=== PATIENT | female | born 1980 | race Caucasian/White ===

== ENCOUNTER 2016-05-17 18:33 | Emergency (ER) | payer MEDICAID, MEDICARE, OTHER ==
[2016-05-17] MEDS ORDERED: Ondansetron 4 MG/2 ML SDV IVPUSH ONE (19:20)
[2016-05-17] MEDS ORDERED: Sodium Chloride 0.9% 10 ML Syringe FLUSH PRN (19:20)
[2016-05-17] MEDS ORDERED: Sodium Chloride 0.9% 1,000 ML IV SCH ×2 (19:30→20:55)
--- NOTE | 2016-05-17 21:15 | EDM.PDOC ---
ED HPI NEURO - General Chief Complaint: Neuro Symptoms/Deficits Stated Complaint: LEFT SIDE WEAKNESS,HEADACHE Time Seen by Provider: 05/17/16 19:20 Source: Reports: Patient History Limitations: Reports: No limitations - History of Present Illness INITIAL COMMENTS - FREE TEXT/NARRATIVE: He a TIA. She awoke this morning with a headache. Her head hurts all over. She complains of left sided weakness and numbness. Earlier in the day she had drooping to the left side of her face but thinks that has cleared up. She still feels dizzy especially when she tries to sit up. She describes it as a spinning sensation and also her vision tends to go black as if she's going to pass out. She's had 2 similar episodes in the past which she describes as TIAs. The last one was in November 2015 and she was seen in [facility]. She had MRI of the C-spine and brain in both were normal. We've obtained copies of those from this hospital I believe it was [facility]'s. She is occasionally had headaches in the past but none that are this severe and lasts this long. She hasn't taken any medication for pain area she is a little bit nauseated but has been able to eat today. She's also dizzy when she is supine and feels the spinning sensation. She does sometimes see some spots before the blackness comes on but nothing that sounds like a scintillating scotoma. She does say that since her last TIA she's had blurriness in the left eye but not enough to have her eyes checked. She is disabled and on Medicare due to to fibromyalgia and the TIAs. She did tell me that the MRI showed a small area of abnormality but the report refutes this. She's never seen a neurologist. She says that left-sided weakness and numbness gives her some trouble walking and gripping. She's had an echocardiogram in the past and had some type of a septal defect. She also had an ultrasound of her legs which showed no evidence of a DVT. She denies any history of having a carotid ultrasound done. She's had 10-15 head CTs in the past at about 4 or 5 MRI. 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 - Related Data Allergies/ADRs: Allergies Allergy/AdvReac Type Severity Reaction Status Date / Time acetaminophen [From Percocet] Allergy Vomiting Verified 05/17/16 18:51 ciprofloxacin [From Cipro] Allergy Anaphylactic Verified 05/17/16 18:51 Shock clindamycin Allergy Anaphylactic Verified 05/17/16 18:51 Shock fish derived Allergy Anaphylactic Verified 05/17/16 18:51 Shock hydrocodone [From Vicodin] Allergy Vomiting Verified 05/17/16 18:51 ibuprofen Allergy Anaphylactic Verified 05/17/16 18:51 Shock NSAIDS (Non-Steroidal Allergy Nausea Verified 05/17/16 18:51 Anti-Inflamma oxycodone [From Percocet] Allergy Vomiting Verified 05/17/16 18:51 Penicillins Allergy Anaphylactic Verified 05/17/16 18:51 Shock tramadol Allergy Vomiting Verified 05/17/16 18:51 Home Meds: Home Meds Amitriptyline [Elavil] 25 mg PO BEDTIME 05/17/16 [History] DULoxetine HCl [Cymbalta] 90 mg PO DAILY 05/17/16 [History] Past Medical History Cardiovascular History: Reports: Other (see below) Other Cardiovascular History: States hole in her heart 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: Musculoskeletal History: Reports: Fracture Neurological History: Reports: TIA, Other (see below) Other Neuro History: November and December 2015 Psychiatric History: Reports: Depression - Infectious Disease History Infectious Disease History: Reports: Chicken pox - Past Surgical History HEENT Surgical History: Reports: Tonsillectomy GI Surgical History: Reports: Appendectomy, Bariatric procedure, Cholecystectomy Female Surgical History: Reports: Hysterectomy, Salpingo-oophorectomy Social & Family History - Tobacco Use Smoking Status *Q: Former Smoker Years of Tobacco use: 18 Packs/Tins Daily: 0.5 Second Hand Smoke Exposure: No - Caffeine Use Caffeine Use: Reports: Coffee, Soda - Recreational Drug Use Recreational Drug Use: No ED ROS GENERAL - Review of Systems Review Of Systems: See Below Constitutional: Reports: weakness HEENT: Reports: Other (See HPI) Respiratory: Reports: No Symptoms Cardiovascular: Reports: No symptoms Endocrine: Reports: no symptoms GI/Abdominal: Reports: No symptoms : Reports: no symptoms Musculoskeletal: Reports: no symptoms Skin: Reports: no symptoms Neurological: Reports: Dizziness, Headache, Numbness, Weakness Psychiatric: Reports: No symptoms Hematologic/Lymphatic: Reports: no symptoms Immunologic: Reports: no symptoms ED EXAM, NEURO - Physical Exam Exam: See Below Exam Limited By: No limitations General Appearance: alert, WD/WN, no apparent distress Eye Exam: bilateral eye: EOMI, normal fundi (Fundi were not well seen), PERRL Ears: normal external exam, normal TMs Nose: normal inspection Throat/Mouth: Normal inspection, Normal oropharynx Head Exam: atraumatic Neck: normal inspection. 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 Legs were generally equal in strength but this was tested with her supine. The patient would get dizzy and feel like having near-syncope whenever she would sit up or tried to stand. Romberg testing appeared positive. When she shut her eyes she would begin to slowly swayed backward but she would catch herself.). No: no motor/sensory deficits DTR: 2+: bicep (R), bicep (L), patella (R), patella (L), achilles (R), achilles (L) Back Exam: normal inspection Extremities: normal inspection Psychiatric: normal affect Skin Exam: Warm, Dry Course - Vital Signs Last Recorded V/S: Last Vital Signs Temp 35.8 C 05/17/16 18:52 Pulse 64 05/17/16 20:28 Resp 20 05/17/16 20:28 BP 106/69 05/17/16 20:28 Pulse Ox 99 05/17/16 20:28 - Orders/Labs/Meds Orders: Active Orders 24 hr Category Date Time Status EKG Documentation Completion [RC] ASDIRECTED Care 05/17/16 19:21 Active Acetaminophen/HYDROcodone [Kinder 325-5 MG] Med 05/17/16 21:28 Once 2 tab PO ONETIME ONE Sodium Chloride 0.9% [Normal Saline] 1,000 ml Med 05/17/16 19:30 Active IV ASDIRECTED Sodium Chloride 0.9% [Saline Flush] Med 05/17/16 19:20 Active 10 ml FLUSH ASDIRECTED PRN Saline Lock Insert [OM.PC] Urgent Oth 05/17/16 19:20 Ordered EKG 12 Lead [EK] Urgent Ther 05/17/16 19:20 Ordered Medication Orders Sodium Chloride (Normal Saline) 1,000 mls @ 999 mls/hr IV ASDIRECTED MAYRA Last Admin: 05/17/16 19:35 Dose: 999 mls/hr Sodium Chloride (Saline Flush) 10 ml FLUSH ASDIRECTED PRN PRN Reason: Keep Vein Open Last Admin: 05/17/16 19:38 Dose: 10 ml Labs: Laboratory Tests 05/17/16 05/17/16 05/17/16 Range/Units 19:31 19:31 20:32 WBC 6.2 (4.5-11.0) K/uL RBC 4.47 (3.30-5.50) M/uL Hgb 13.6 (12.0-15.0) g/dL Hct 40.6 (36.0-48.0) % MCV 91 (80-98) fL MCH 30 (27-31) pg MCHC 34 (32-36) % Plt Count 272 (150-400) K/uL Neut % (Auto) 58 (36-66) % Lymph % (Auto) 34 (24-44) % [place] % (Auto) 6 (2-6) % Eos % (Auto) 2 (2-4) % Baso % (Auto) 0 (0-1) % Sodium 142 (140-148) mmol/L Potassium 4.2 (3.6-5.2) mmol/L Chloride 108 (100-108) mmol/L Carbon Dioxide 27 (21-32) mmol/L Anion Gap 6.7 (5.0-14.0) mmol/L BUN 17 (7-18) mg/dL Creatinine 0.9 (0.6-1.0) mg/dL Est Cr Clr Drug Dosing 98.05 mL/min Estimated GFR (MDRD) > 60 (>60) Glucose 107 H (74-106) mg/dL Calcium 8.3 L (8.5-10.1) mg/dL Total Bilirubin 0.4 (0.2-1.0) mg/dL AST 22 (15-37) U/L ALT 32 (12-78) U/L Alkaline Phosphatase 110 (46-116) U/L Total Protein 6.5 (6.4-8.2) g/dL Albumin 3.5 (3.4-5.0) g/dL Globulin 3.0 (2.3-3.5) g/dL Albumin/Globulin Ratio 1.2 (1.2-2.2) Urine Color Urine Appearance Urine pH (4.5-8.0) Ur Specific [place] (1.008-1.030) Urine Protein (NEGATIVE) mg/dL Urine Glucose (UA) (NEGATIVE) mg/dL Urine Ketones (NEGATIVE) mg/dL Urine Occult Blood (NEGATIVE) Urine Nitrite (NEGATIVE) Urine Bilirubin (NEGATIVE) Urine Urobilinogen (NORMAL) mg/dL Ur Leukocyte Esterase (NEGATIVE) Urine RBC (0-5) Urine WBC (0-5) Ur Epithelial Cells Amorphous Sediment Urine Bacteria Urine Mucus Urine HCG, Qual Negative 05/17/16 Range/Units 20:32 WBC (4.5-11.0) K/uL RBC (3.30-5.50) M/uL Hgb (12.0-15.0) g/dL Hct (36.0-48.0) % MCV (80-98) fL MCH (27-31) pg MCHC (32-36) % Plt Count (150-400) K/uL Neut % (Auto) (36-66) % Lymph % (Auto) (24-44) % [place] % (Auto) (2-6) % Eos % (Auto) (2-4) % Baso % (Auto) (0-1) % Sodium (140-148) mmol/L Potassium (3.6-5.2) mmol/L Chloride (100-108) mmol/L Carbon Dioxide (21-32) mmol/L Anion Gap (5.0-14.0) mmol/L BUN (7-18) mg/dL Creatinine (0.6-1.0) mg/dL Est Cr Clr Drug Dosing mL/min Estimated GFR (MDRD) (>60) Glucose (74-106) mg/dL Calcium (8.5-10.1) mg/dL Total Bilirubin (0.2-1.0) mg/dL AST (15-37) U/L ALT (12-78) U/L Alkaline Phosphatase (46-116) U/L Total Protein (6.4-8.2) g/dL Albumin (3.4-5.0) g/dL Globulin (2.3-3.5) g/dL Albumin/Globulin Ratio (1.2-2.2) Urine Color Yellow Urine Appearance Cloudy Urine pH 8.0 (4.5-8.0) Ur Specific [place] 1.015 (1.008-1.030) Urine Protein Negative (NEGATIVE) mg/dL Urine Glucose (UA) Normal (NEGATIVE) mg/dL Urine Ketones Negative (NEGATIVE) mg/dL Urine Occult Blood Negative (NEGATIVE) Urine Nitrite Negative (NEGATIVE) Urine Bilirubin Negative (NEGATIVE) Urine Urobilinogen 1 (NORMAL) mg/dL Ur Leukocyte Esterase Large (NEGATIVE) Urine RBC 0-5 (0-5) Urine WBC 20-30 H (0-5) Ur Epithelial Cells Few Amorphous Sediment Moderate Urine Bacteria Few Urine Mucus Few Urine HCG, Qual Meds: Medications Generic Name Dose Route Start Last Admin Trade Name Freq PRN Reason Stop Dose Admin Sodium Chloride 1,000 mls @ 999 mls/hr 05/17/16 19:30 05/17/16 19:35 Normal Saline IV 999 mls/hr ASDIRECTED MAYRA Administration Sodium Chloride 10 ml 05/17/16 19:20 05/17/16 19:38 Saline Flush FLUSH 10 ml ASDIRECTED PRN Administration Keep Vein Open Discontinued Medications Generic Name Dose Route Start Last Admin Trade Name Freq PRN Reason Stop Dose Admin Ondansetron HCl 4 mg 05/17/16 19:20 05/17/16 19:39 Zofran IVPUSH 05/17/16 19:21 4 mg ONETIME ONE Administration - Re-Assessments/Exams Free Text/Narrative Re-Assessment/Exam: 05/17/16 21:39 the patient's blood pressure dropped to about asystolic of 101 with her spinning. She had just gotten up to go to the bathroom and was feeling dizzy at that time. Her pulse rate at that time had slowed slightly to about 69. There was never any obvious orthostasis noted. Although at one time her radial pulse seemed barely palpable with her sitting up. She received approximately a liter and a half of IV normal saline and that did not seem to change her symptoms. This case was discussed with the neurologist at [facility] in [facility]. He felt that this could be a migrainous phenomenon or still possibly a TIA or small stroke. He felt like she deserves a full workup. We' re not able to do that in a timely manner at this hospital and we are not able to admit her either so she'll be transferred to [place] to his care. Patient agrees to the transfer. Departure - Departure Time of Disposition: 21:43 Disposition: DC/Tfer to Acute Hospital 02 Condition: serious Clinical Impression: Cerebrovascular insufficiency Forms: ED Department Discharge - My Orders Last 24 Hours: My Active Orders 05/17/16 19:20 Sodium Chloride 0.9% [Saline Flush] 10 ml FLUSH ASDIRECTED PRN Saline Lock Insert [OM.PC] Urgent EKG 12 Lead [EK] Urgent 05/17/16 19:21 EKG Documentation Completion [RC] ASDIRECTED 05/17/16 19:30 Sodium Chloride 0.9% [Normal Saline] 1,000 ml IV ASDIRECTED 05/17/16 21:28 Acetaminophen/HYDROcodone [Kinder 325-5 MG] 2 tab PO ONETIME ONE - Assessment/Plan Last 24 Hours: My Active Orders 05/17/16 19:20 Sodium Chloride 0.9% [Saline Flush] 10 ml FLUSH ASDIRECTED PRN Saline Lock Insert [OM.PC] Urgent EKG 12 Lead [EK] Urgent 05/17/16 19:21 EKG Documentation Completion [RC] ASDIRECTED 05/17/16 19:30 Sodium Chloride 0.9% [Normal Saline] 1,000 ml IV ASDIRECTED 05/17/16 21:28 Acetaminophen/HYDROcodone [Kinder 325-5 MG] 2 tab PO ONETIME ONE
[2016-05-17] MEDS ORDERED: Acetaminophen/HYDROcodone 325-5 MG Tab PO ONE (21:28)
[2016-05-17 21:50] VITALS: BP 119/65
== END 2016-05-17 22:10 ==
LOC: JP.ED 18:33
DX: I67.81 Acute cerebrovascular insufficiency (principal); Z88.6 Allergy status to analgesic agent; Z88.8 Allergy status to other drugs, medicaments and biological substances; Z88.0 Allergy status to penicillin; Z88.5 Allergy status to narcotic agent; Z79.899 Other long term (current) drug therapy; Z86.73 Personal history of transient ischemic attack (TIA), and cerebral infarction without residual deficits; Z90.710 Acquired absence of both cervix and uterus; Z90.89 Acquired absence of other organs; Z98.890 Other specified postprocedural states; Z87.891 Personal history of nicotine dependence
CPT/HCPCS: 36415; 80053; 81001; 81025; 85025; 93005; 96361; 96374; 99285; A9270; J2405; J7040; J7050; 93010

== ENCOUNTER 2016-06-04 13:21 | Emergency (ER) | payer MEDICAID, MEDICARE, OTHER ==
[2016-06-04 13:42] VITALS: BP 111/68
--- NOTE | 2016-06-04 14:48 | EDM.PDOC ---
[id number] Complaint: LT SIDE WEAKNESS/CONFUSED Time Seen by Provider: 06/04/16 13:45 Source of Information: Reports: Patient History Limitations: Reports: No limitations - History of Present Illness INITIAL COMMENTS - FREE TEXT/NARRATIVE: 35-year-old female who was at physical therapy this morning because of persistent left-sided weakness after a "TIA" became more symptomatic so she was sent to the emergency room to evaluate for a stroke. On arrival she was dysarthric, displaying some weakness of the left upper extremity and left lower extremity but had no headache. Denies any visual field deficits or double vision. She was stable. Onset: sudden (Sudden worsening of her chronic symptoms) Associated Symptoms: Reports: malaise, weakness. Denies: fever/chills, headaches Headache Pain Score (Numeric/FACES): 10 - Related Data Allergies Allergy/AdvReac Type Severity Reaction Status Date / Time adhesive tape Allergy Blisters Verified 06/04/16 13:31 ciprofloxacin [From Cipro] Allergy Anaphylactic Verified 06/04/16 13:31 Shock clindamycin Allergy Anaphylactic Verified 06/04/16 13:31 Shock fish derived Allergy Anaphylactic Verified 06/04/16 13:31 Shock ibuprofen Allergy Anaphylactic Verified 06/04/16 13:31 Shock Penicillins Allergy Anaphylactic Verified 06/04/16 13:31 Shock hydrocodone [From Vicodin] AdvReac Vomiting Verified 06/04/16 13:31 NSAIDS (Non-Steroidal AdvReac Nausea Verified 06/04/16 13:31 Anti-Inflamma oxycodone [From Percocet] AdvReac Vomiting Verified 06/04/16 13:31 tramadol AdvReac Vomiting Verified 06/04/16 13:31 Home Meds: Home Meds Amitriptyline [Elavil] 25 mg PO BEDTIME 05/17/16 [History] DULoxetine HCl [Cymbalta] 90 mg PO DAILY 05/17/16 [History] Aspirin [Halfprin] 81 mg PO DAILY 06/04/16 [History] atorvaSTATin [Lipitor] 10 mg PO DAILY 06/04/16 [History] Past Medical History Cardiovascular History: Reports: Other (see below) Other Cardiovascular History: States hole in her heart 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: Musculoskeletal History: Reports: Fracture Neurological History: Reports: TIA, Other (see below) Other Neuro History: November and December TIA Psychiatric History: Reports: Depression - Infectious Disease History Infectious Disease History: Reports: Chicken pox - Past Surgical History HEENT Surgical History: Reports: Tonsillectomy GI Surgical History: Reports: Appendectomy, Bariatric procedure, Cholecystectomy Female Surgical History: Reports: Hysterectomy, Salpingo-oophorectomy Social & Family History - Tobacco Use Smoking Status *Q: Former Smoker Years of Tobacco use: 18 Packs/Tins Daily: 0.5 Used Tobacco, but Quit: Yes Month Tobacco Last Used: May 2016 Second Hand Smoke Exposure: No - Caffeine Use Caffeine Use: Reports: Coffee - Recreational Drug Use Recreational Drug Use: No ED ROS GENERAL - Review of Systems Review Of Systems: See Below Constitutional: Denies: fever, chills HEENT: Reports: No symptoms Respiratory: Denies: Shortness of Breath Cardiovascular: Denies: Chest pain, Palpitations GI/Abdominal: Denies: Nausea, Vomiting Neurological: Reports: Dizziness, Paresthesia, Weakness, Gait Disturbance Psychiatric: Reports: Anxiety, Depression, Other (Bipolar disorder and schizophrenia) ED EXAM, GENERAL - Physical Exam Exam: See Below Exam Limited By: No limitations General Appearance: alert, no apparent distress Eye Exam: bilateral eye: EOMI Throat/Mouth: Other (Some dysarthria when speaking but the weakness in her face is inconsistent) Respiratory/Chest: no respiratory distress, lungs clear Cardiovascular: regular rate, rhythm Extremities: other (Weakness of the left grasp and plantar and dorsi flexion of the left foot) Psychiatric: depressed mood, flat affect Skin Exam: Warm, Dry Course - Vital Signs Last Recorded V/S: Last Vital Signs Temp 97.0 F 06/04/16 13:34 Pulse 68 06/04/16 13:34 Resp 12 06/04/16 13:34 BP 111/68 06/04/16 13:34 Pulse Ox 95 06/04/16 13:34 - Orders/Labs/Meds Labs: Laboratory Tests 06/04/16 06/04/16 Range/Units 13:59 13:59 WBC 5.8 (4.5-11.0) K/uL RBC 4.10 (3.30-5.50) M/uL Hgb 12.6 (12.0-15.0) g/dL Hct 38.3 (36.0-48.0) % MCV 93 (80-98) fL MCH 31 (27-31) pg MCHC 33 (32-36) % Plt Count 248 (150-400) K/uL Neut % (Auto) 52 (36-66) % Lymph % (Auto) 38 (24-44) % [place] % (Auto) 7 H (2-6) % Eos % (Auto) 2 (2-4) % Baso % (Auto) 1 (0-1) % Sodium 145 (140-148) mmol/L Potassium 4.1 (3.6-5.2) mmol/L Chloride 108 (100-108) mmol/L Carbon Dioxide 28 (21-32) mmol/L Anion Gap 9.0 (5.0-14.0) mmol/L BUN 16 (7-18) mg/dL Creatinine 0.7 (0.6-1.0) mg/dL Est Cr Clr Drug Dosing 126.98 mL/min Estimated GFR (MDRD) > 60 (>60) Glucose 86 (74-106) mg/dL Calcium 8.1 L (8.5-10.1) mg/dL Magnesium 1.8 (1.8-2.4) mg/dL - Re-Assessments/Exams Free Text/Narrative Re-Assessment/Exam: 06/04/16 15:51 I reviewed this patient's records extensively including a recent hospitalization for TIA. She admitted that last year she was evaluated for 2 episodes of similar symptoms while in [place]. Her CT and MRI have all been normal. The symptoms are more consistent with conversion disorder than they are true neurologic disease. I dave a CBC and BMP before I realized she had a complete physical 2 days ago and had the same labs drawn. They again were normal. I told the patient of the normal labs, of my suspicion that her symptoms are caused by stress and are not dangerous or disabling and she was able to discharged. She quickly improved, called her significant other to come and get her and take her home and she walked out of the emergency room without any apparent deficits. Departure - Departure Time of Disposition: 16:04 Disposition: Home, Self-Care 01 Condition: good Clinical Impression: Weakness of left side of body, Conversion disorder Referrals: PCP,None [Primary Care Provider] - Forms: ED Department Discharge Care Plan Goals: Continue with your current medications and recheck as scheduled.
== END 2016-06-04 16:04 | disposition home or self-care (01) ==
LOC: JP.ED 13:21
DX: F44.4 Conversion disorder with motor symptom or deficit (principal); F32.9 Major depressive disorder, single episode, unspecified; Z88.1 Allergy status to other antibiotic agents; Z88.0 Allergy status to penicillin; Z88.6 Allergy status to analgesic agent; Z91.09 Other allergy status, other than to drugs and biological substances; Z88.5 Allergy status to narcotic agent; Z79.82 Long term (current) use of aspirin; Z79.899 Other long term (current) drug therapy; Z86.73 Personal history of transient ischemic attack (TIA), and cerebral infarction without residual deficits; Z98.890 Other specified postprocedural states; Z90.49 Acquired absence of other specified parts of digestive tract; Z98.84 Bariatric surgery status; Z90.710 Acquired absence of both cervix and uterus; Z87.891 Personal history of nicotine dependence
CPT/HCPCS: 36415; 80048; 83735; 85025; 99283; 99285

== ENCOUNTER 2016-06-28 13:30 | Emergency (ER) | payer MEDICAID, MEDICARE, OTHER ==
[2016-06-28] MEDS ORDERED: Sodium Chloride 0.9% 10 ML Syringe FLUSH PRN (13:37)
[2016-06-28] MEDS ORDERED: Sodium Chloride 0.9% 1,000 ML IV SCH ×2 (13:45→16:15)
[2016-06-28] MEDS ORDERED: HYDROmorphone 1 MG/ML Syringe IVPUSH ONE (16:03)
[2016-06-28] MEDS ORDERED: Prochlorperazine 10 MG/2 ML SDV IVPUSH ONE (16:04)
[2016-06-28] MEDS ORDERED: diphenhydrAMINE 50 MG/ML SDV IVPUSH ONE (16:04)
--- NOTE | 2016-06-28 17:38 | EDM.PDOC ---
ED HPI GENERAL MEDICAL PROBLEM - General Chief Complaint: Neurological Problem Stated Complaint: [facility] Time Seen by Provider: 06/28/16 13:36 Source of Information: Reports: Patient History Limitations: Reports: No Limitations, Physical Impairment - History of Present Illness INITIAL COMMENTS - FREE TEXT/NARRATIVE: This patient was brought in by EMS complaining of a TIA. She's had these kind of symptoms before where one side of her body becomes weak. This has happened a number of times and she's had multiple workups including multiple head CTs and multiple brain MRIs area she's scheduled to see a neurologist next week. 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 She felt numbness and weakness in her left arm and leg. She did not fall. EMS was called. She denied any kind of visual changes. There is no slurring of speech she does complain that her left arm is just weak and she is unable to hold things. After hydrating her with a liter of saline in doing lab work the patient notes that she has a really bad headache and this is what started the episode. She occasionally gets headaches but says this one seems to be worse than the others. The headache started just about the time the weakness started. She does think that she's had headaches when she's had other episodes of weakness also. She has never been told that she had migraines. She's never had any visual changes associated with headaches Head Pain Score (Numeric/FACES): 10 - Related Data Allergies Allergy/AdvReac Type Severity Reaction Status Date / Time adhesive tape Allergy Blisters Verified 06/28/16 14:11 ciprofloxacin [From Cipro] Allergy Anaphylactic Verified 06/28/16 14:11 Shock clindamycin Allergy Anaphylactic Verified 06/28/16 14:11 Shock fish derived Allergy Anaphylactic Verified 06/28/16 14:11 Shock ibuprofen Allergy Anaphylactic Verified 06/28/16 14:11 Shock Penicillins Allergy Anaphylactic Verified 06/28/16 14:11 Shock hydrocodone [From Vicodin] AdvReac Vomiting Verified 06/28/16 14:11 NSAIDS (Non-Steroidal AdvReac Nausea Verified 06/28/16 14:11 Anti-Inflamma oxycodone [From Percocet] AdvReac Vomiting Verified 06/28/16 14:11 tramadol AdvReac Vomiting Verified 06/28/16 14:11 Home Meds: Home Meds Amitriptyline [Elavil] 25 mg PO BEDTIME 05/17/16 [History] DULoxetine HCl [Cymbalta] 90 mg PO BEDTIME 05/17/16 [History] Aspirin [Halfprin] 81 mg PO ASDIRECTED 06/04/16 [History] atorvaSTATin [Lipitor] 10 mg PO DAILY 06/04/16 [History] Cyclobenzaprine [Flexeril] 1 tab PO ASDIRECTED 06/28/16 [History] Gabapentin [Neurontin] 1 tab PO TID 06/28/16 [History] Past Medical History Cardiovascular History: Reports: Other (See Below) Other Cardiovascular History: States hole in her heart 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: Musculoskeletal History: Reports: Fracture Neurological History: Reports: TIA Other Neuro History: November and December TIA Psychiatric History: Reports: Depression - Infectious Disease History Infectious Disease History: Reports: Chicken Pox - Past Surgical History HEENT Surgical History: Reports: Tonsillectomy GI Surgical History: Reports: Appendectomy, Bariatric Procedure, Cholecystectomy Female Surgical History: Reports: Hysterectomy, Salpingo-Oophorectomy Social & Family History - Tobacco Use Smoking Status *Q: Never Smoker Years of Tobacco use: 18 Packs/Tins Daily: 0.5 Used Tobacco, but Quit: Yes Month Tobacco Last Used: May 2016 Second Hand Smoke Exposure: No - Caffeine Use Caffeine Use: Reports: Coffee - Recreational Drug Use Recreational Drug Use: No ED ROS GENERAL - Review of Systems Review Of Systems: See Below Constitutional: Reports: Weakness HEENT: Reports: No Symptoms Respiratory: Reports: No Symptoms Cardiovascular: Reports: No Symptoms Endocrine: Reports: Polyuria GI/Abdominal: Reports: No Symptoms : Reports: No Symptoms Musculoskeletal: Reports: No Symptoms Skin: Reports: No Symptoms Neurological: Reports: Headache, Paresthesia, Weakness Psychiatric: Reports: No Symptoms Hematologic/Lymphatic: Reports: No Symptoms ED EXAM, NEURO - Physical Exam Exam: See Below Exam Limited By: No Limitations General Appearance: Alert, WD/WN (She seems alert but a little bit slow to respond) Eye Exam: Bilateral Eye: EOMI, PERRL Ears: Normal External Exam Nose: Normal Inspection Throat/Mouth: Normal Inspection, Normal Oropharynx Head Exam: Atraumatic Neck: Normal Inspection Respiratory/Chest: Lungs Clear Cardiovascular: Regular Rate, Rhythm, No Murmur (Infection that might want a) GI/Abdominal: Soft, Non-Tender Neurological: Alert, Normal Mood/Affect, Normal Dorsiflexion, CN II-XII Intact, Normal Plantar Flexion, Normal Reflexes, Other (Initially she seemed like she couldn't move her left side at all however with coaching she definitely is able to move the left arm and over the course of treatment she completely regains his strength in her left hand.). No: No Motor/Sensory Deficits DTR: 2+: Bicep (R), Bicep (L), Patella (R), Patella (L), Achilles (R), Achilles (L) Extremities: Normal Inspection Psychiatric: Normal Affect, Normal Mood Skin Exam: Warm, Dry, Intact Course - Vital Signs Last Recorded V/S: Last Vital Signs Temp 36.3 C 06/28/16 14:00 Pulse 67 06/28/16 17:51 Resp 14 06/28/16 17:51 BP 115/56 L 06/28/16 17:51 Pulse Ox 98 06/28/16 17:51 - Orders/Labs/Meds Orders: Active Orders 24 hr Category Date Time Status EKG Documentation Completion [RC] ASDIRECTED Care 06/28/16 13:37 Active Chest 1V Frontal [CR] Urgent Exams 06/28/16 13:37 Taken DRUG SCREEN, URINE [URCHEM] Urgent Lab 06/28/16 13:37 Uncollected HCG QUALITATIVE,URINE [URCHEM] Urgent Lab 06/28/16 13:37 Uncollected UA W/MICROSCOPIC [URIN] Urgent Lab 06/28/16 13:37 Uncollected Sodium Chloride 0.9% [Normal Saline] 1,000 ml Med 06/28/16 13:45 Active IV ASDIRECTED Sodium Chloride 0.9% [Normal Saline] 1,000 ml Med 06/28/16 16:15 Active IV ASDIRECTED Sodium Chloride 0.9% [Saline Flush] Med 06/28/16 13:37 Active 10 ml FLUSH ASDIRECTED PRN Saline Lock Insert [OM.PC] Urgent Oth 06/28/16 13:37 Ordered EKG 12 Lead [EK] Urgent Ther 06/28/16 13:37 Ordered Medication Orders Sodium Chloride (Normal Saline) 1,000 mls @ 999 mls/hr IV ASDIRECTED MAYRA Last Admin: 06/28/16 14:51 Dose: 999 mls/hr Sodium Chloride (Normal Saline) 1,000 mls @ 999 mls/hr IV ASDIRECTED MAYRA Last Admin: 06/28/16 16:20 Dose: 999 mls/hr Sodium Chloride (Saline Flush) 10 ml FLUSH ASDIRECTED PRN PRN Reason: Keep Vein Open Last Admin: 06/28/16 14:52 Dose: 10 ml Labs: Laboratory Tests 06/28/16 06/28/16 Range/Units 13:44 13:44 WBC 5.9 (4.5-11.0) K/uL RBC 4.32 (3.30-5.50) M/uL Hgb 13.4 (12.0-15.0) g/dL Hct 40.0 (36.0-48.0) % MCV 93 (80-98) fL MCH 31 (27-31) pg MCHC 34 (32-36) % Plt Count 255 (150-400) K/uL Neut % (Auto) 53 (36-66) % Lymph % (Auto) 37 (24-44) % [place] % (Auto) 7 H (2-6) % Eos % (Auto) 2 (2-4) % Baso % (Auto) 1 (0-1) % Sodium 141 (140-148) mmol/L Potassium 4.2 (3.6-5.2) mmol/L Chloride 106 (100-108) mmol/L Carbon Dioxide 26 (21-32) mmol/L Anion Gap 9.1 (5.0-14.0) mmol/L BUN 19 H (7-18) mg/dL Creatinine 0.8 (0.6-1.0) mg/dL Est Cr Clr Drug Dosing TNP Estimated GFR (MDRD) > 60 (>60) Glucose 86 (74-106) mg/dL Calcium 8.8 (8.5-10.1) mg/dL Total Bilirubin 0.3 (0.2-1.0) mg/dL AST 32 (15-37) U/L ALT 42 (12-78) U/L Alkaline Phosphatase 108 (46-116) U/L Troponin I < 0.017 (0.000-0.056) ng/mL Total Protein 7.2 (6.4-8.2) g/dL Albumin 4.0 (3.4-5.0) g/dL Globulin 3.2 (2.3-3.5) g/dL Albumin/Globulin Ratio 1.3 (1.2-2.2) Meds: Medications Generic Name Dose Route Start Last Admin Trade Name Freq PRN Reason Stop Dose Admin Sodium Chloride 1,000 mls @ 999 mls/hr 06/28/16 13:45 06/28/16 14:51 Normal Saline IV 999 mls/hr ASDIRECTED MAYRA Administration Sodium Chloride 1,000 mls @ 999 mls/hr 06/28/16 16:15 06/28/16 16:20 Normal Saline IV 999 mls/hr ASDIRECTED MAYRA Administration Sodium Chloride 10 ml 06/28/16 13:37 06/28/16 14:52 Saline Flush FLUSH 10 ml ASDIRECTED PRN Administration Keep Vein Open Discontinued Medications Generic Name Dose Route Start Last Admin Trade Name Freq PRN Reason Stop Dose Admin Diphenhydramine HCl 25 mg 06/28/16 16:04 06/28/16 16:22 Benadryl IVPUSH 06/28/16 16:05 25 mg ONETIME ONE Administration Hydromorphone HCl 1 mg 06/28/16 16:03 06/28/16 16:26 Dilaudid IVPUSH 06/28/16 16:04 1 mg ONETIME ONE Administration Prochlorperazine Edisylate 10 mg 06/28/16 16:04 06/28/16 16:23 Compazine IVPUSH 06/28/16 16:05 10 mg ONETIME ONE Administration - Re-Assessments/Exams Free Text/Narrative Re-Assessment/Exam: 06/28/16 18:06 The patient initially received 1 L of IV normal saline and labs were done. After that I examined her again and spoke with her and that is when I got the history of this headache which immediately preceded the development of this left -sided weakness. I reviewed her chart and her past history ER notes and so forth and as well as the history of numerous CTs and MRIs. Overall I think this patient is suffering from a migraine which is causing this left-sided weakness. I do not think that another CT scan is indicated. I treated her with a second liter of IV normal saline 10 mg of Compazine 25 of Benadryl to prevent EPS and Dilaudid 1 mg. After the second liter of fluid was in she felt much better. She was rechecked and I think she is essentially back to normal The patient has an appointment with the neurologist in about one week and I would like her to explain exactly what happened today particularly the left- sided weakness associated with headache. Departure - Departure Time of Disposition: 18:08 Disposition: Home, Self-Care 01 Condition: fair Clinical Impression: Migraine variant with headache - Discharge Information Forms: ED Department Discharge Additional Instructions: Continue all your usual medications. See the neurologist next week as planned. [facility] neurologist that you were in the emergency department and you had left sided weakness associated with a headache and that the weakness went away with the headache. Return to the ER at any time if needed - My Orders Last 24 Hours: My Active Orders 06/28/16 13:37 EKG Documentation Completion [RC] ASDIRECTED Chest 1V Frontal [CR] Urgent DRUG SCREEN, URINE [URCHEM] Urgent HCG QUALITATIVE,URINE [URCHEM] Urgent UA W/MICROSCOPIC [URIN] Urgent Sodium Chloride 0.9% [Saline Flush] 10 ml FLUSH ASDIRECTED PRN Saline Lock Insert [OM.PC] Urgent EKG 12 Lead [EK] Urgent 06/28/16 13:45 Sodium Chloride 0.9% [Normal Saline] 1,000 ml IV ASDIRECTED 06/28/16 16:15 Sodium Chloride 0.9% [Normal Saline] 1,000 ml IV ASDIRECTED - Assessment/Plan Last 24 Hours: My Active Orders 06/28/16 13:37 EKG Documentation Completion [RC] ASDIRECTED Chest 1V Frontal [CR] Urgent DRUG SCREEN, URINE [URCHEM] Urgent HCG QUALITATIVE,URINE [URCHEM] Urgent UA W/MICROSCOPIC [URIN] Urgent Sodium Chloride 0.9% [Saline Flush] 10 ml FLUSH ASDIRECTED PRN Saline Lock Insert [OM.PC] Urgent EKG 12 Lead [EK] Urgent 06/28/16 13:45 Sodium Chloride 0.9% [Normal Saline] 1,000 ml IV ASDIRECTED 06/28/16 16:15 Sodium Chloride 0.9% [Normal Saline] 1,000 ml IV ASDIRECTED
[2016-06-28 17:51] VITALS: BP 115/56
--- NOTE | 2016-06-30 08:32 | CR ---
Heart size within normal limits. Pulmonary vascular within normal limits. No focal consolidation. No dular density within the right lung base. This may indicate a nipple shadow but should be confirmed with a nipple marker follow-up.
== END 2016-06-28 18:26 | disposition home or self-care (01) ==
LOC: JP.ED 13:30
DX: G43.809 Other migraine, not intractable, without status migrainosus (principal); F32.9 Major depressive disorder, single episode, unspecified; Z88.1 Allergy status to other antibiotic agents; Z88.0 Allergy status to penicillin; Z88.8 Allergy status to other drugs, medicaments and biological substances; Z91.013 Allergy to seafood; Z79.82 Long term (current) use of aspirin; Z79.899 Other long term (current) drug therapy; Z90.49 Acquired absence of other specified parts of digestive tract; Z90.710 Acquired absence of both cervix and uterus; Z98.890 Other specified postprocedural states
CPT/HCPCS: 36415; 71010; 80053; 84484; 85025; 93005; 96361; 96374; 96375; 99283; J0780; J1170; J1200; J7040; J7050; 93010; 99284

== ENCOUNTER 2018-11-04 11:23 | Emergency (ER) | payer BC ==
[2018-11-04 11:37] VITALS: PULSE 75
--- NOTE | 2018-11-04 11:54 | EDM.PDOC ---
ED HPI GENERAL MEDICAL PROBLEM - General Chief Complaint: Chest Pain Stated Complaint: Chest pressure Time Seen by Provider: 11/04/18 11:36 Source of Information: Reports: Patient History Limitations: Reports: No Limitations - History of Present Illness INITIAL COMMENTS - FREE TEXT/NARRATIVE: Patient presents describing left-sided chest pressure sensation beginning approximately 1045 hrs. today. She was at work, which is relatively physical, and noticed sudden onset of what she describes as a chest pressure not pain. She also felt this going into the left side of her neck and the left arm down to the elbow. Fingers in the left arm has a tingly feeling off and on area she talked to a coworker who had her sit down for a couple minutes. 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 She later went to the plant nurse and in describing symptoms, recommended that she come here for evaluation. As noted, the pain is a pressure or not a sharp pain. It's primarily in the low anterolateral portion of the left chest. She can breathe alright but she feels as if something is tight within her chest. She has no symptoms like this in the right hemithorax. Movement of the left arm does not change her symptoms in anyway. She hasn't been ill with anything else recently other than a headache which has persisted over the last 2 or 3 days. She took 2 Tylenol tablets before going to work today for the headache but was not having her chest symptoms at that time. When family came home at the end of their work shift, she was still in bed, having slept through her alarm. This is quite unusual for her. When the pain came on initially she had some nausea but no vomiting. Symptoms of nausea and diminished but with any change in the left-sided chest pain the nausea goes up again. No fever or chills. No cough. No constipation or diarrhea. Never had any symptoms like this before. She does smoke. Onset: Today, Sudden Duration: Hour(s): (1045) Location: Reports: Chest Quality: Reports: Dull, Pressure. Denies: Sharp, Stabbing Severity: Moderate Improves with: Reports: None Worsens with: Reports: None Context: Reports: Activity Associated Symptoms: Reports: Nausea/Vomiting Left Chest Pain Score (Numeric/FACES): 7 - Related Data Allergies Allergy/AdvReac Type Severity Reaction Status Date / Time ciprofloxacin [From Cipro] Allergy Severe Anaphylactic Verified 11/04/18 11:35 Shock clindamycin Allergy Severe Anaphylactic Verified 11/04/18 11:35 Shock fish derived Allergy Severe Anaphylactic Verified 11/04/18 11:35 Shock ibuprofen Allergy Severe Anaphylactic Verified 11/04/18 11:35 Shock Penicillins Allergy Severe Anaphylactic Verified 11/04/18 11:35 Shock adhesive tape Allergy Blisters Verified 11/04/18 11:35 hydrocodone [From Vicodin] AdvReac Vomiting Verified 11/04/18 11:35 NSAIDS (Non-Steroidal AdvReac Nausea Verified 11/04/18 11:35 Anti-Inflamma oxycodone [From Percocet] AdvReac Vomiting Verified 11/04/18 11:35 tramadol AdvReac Vomiting Verified 11/04/18 11:35 Home Meds: Home Meds Cholecalciferol (Vitamin D3) [Vitamin D3] 5,000 unit PO DAILY 12/20/17 [History] Levomefolate Calcium [l-Methylfolate Calcium] 15 mg PO DAILY 12/20/17 [History] busPIRone HCl [busPIRone] 30 mg PO BID 12/20/17 [History] traZODone HCl [Trazodone HCl] 100 mg PO BEDTIME PRN 01/19/18 [History] Zolpidem [Ambien] 5 mg PO BEDTIME PRN 02/07/18 [History] Eszopiclone [Lunesta] 1 mg PO BEDTIME PRN 11/04/18 [History] Past Medical History HEENT History: Reports: Impaired Vision Cardiovascular History: Reports: Other (See Below) Other Cardiovascular History: States hole in her heart Respiratory History: Reports: Bronchitis, Recurrent Gastrointestinal History: Reports: None Genitourinary History: Reports: UTI, Recurrent 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: Musculoskeletal History: Reports: Fracture Neurological History: Reports: TIA Other Neuro History: November and December TIA Psychiatric History: Reports: Depression - Infectious Disease History Infectious Disease History: Reports: Chicken Pox - Past Surgical History Head Surgeries/Procedures: Reports: None HEENT Surgical History: Reports: Tonsillectomy GI Surgical History: Reports: Appendectomy, Bariatric Procedure, Cholecystectomy , EGD Female Surgical History: Reports: Hysterectomy, Salpingo-Oophorectomy Musculoskeletal Surgical History: Reports: Arthroscopic Knee, Other (See Below) Other Musculoskeletal Surgeries/Procedures:: hip surgerys, and knee surgerys Social & Family History - Tobacco Use Smoking Status *Q: Current Every Day Smoker Years of Tobacco use: 20 Packs/Tins Daily: 0.5 - Caffeine Use Caffeine Use: Reports: Coffee - Recreational Drug Use Recreational Drug Use: No ED ROS GENERAL - Review of Systems Review Of Systems: See Below Constitutional: Reports: Fatigue HEENT: Reports: No Symptoms Respiratory: Reports: No Symptoms Cardiovascular: Reports: No Symptoms GI/Abdominal: Reports: Nausea. Denies: Vomiting : Reports: No Symptoms Musculoskeletal: Reports: Arm Pain (Left arm down to elbow) Skin: Reports: No Symptoms Neurological: Reports: Tingling (Left fingers) ED EXAM, GENERAL - Physical Exam Exam: See Below Exam Limited By: No Limitations General Appearance: Alert, No Apparent Distress Neck: Normal Inspection Respiratory/Chest: No Respiratory Distress, Lungs Clear, Chest Non-Tender Cardiovascular: Regular Rate, Rhythm, No Murmur Extremities: Normal Inspection EKG INTERPRETATION EKG Date: 11/04/18 Time: 11:20 Rhythm: NSR [place]: Normal P-Wave: Present QRS: Normal ST-T: Normal Course - Vital Signs Last Recorded V/S: Last Vital Signs Temp 36.3 C 11/04/18 11:42 Pulse 75 11/04/18 11:42 Resp 12 11/04/18 13:00 BP 103/75 11/04/18 14:00 Pulse Ox 97 11/04/18 14:00 - Orders/Labs/Meds Orders: Active Orders 24 hr Category Date Time Status EKG Documentation Completion [RC] ASDIRECTED Care 11/04/18 12:00 Ordered Saline Lock Insert [OM.PC] Routine Oth 11/04/18 12:01 Ordered EKG 12 Lead [EK] Routine Ther 11/04/18 11:59 Ordered Labs: Laboratory Tests 11/04/18 11/04/18 11/04/18 Range/Units 12:06 12:06 12:10 WBC 4.8 (4.5-11.0) K/uL RBC 4.09 (3.30-5.50) M/uL Hgb 12.3 (12.0-15.0) g/dL Hct 37.8 (36.0-48.0) % MCV 92 (80-98) fL MCH 30 (27-31) pg MCHC 33 (32-36) % Plt Count 204 (150-400) K/uL Neut % (Auto) 53 (36-66) % Lymph % (Auto) 40 (24-44) % [place] % (Auto) 6 (2-6) % Eos % (Auto) 1 L (2-4) % Baso % (Auto) 0 (0-1) % D-Dimer, Quantitative < 100 (0.0-400.0) ng/mL Sodium 140 (140-148) mmol/L Potassium 3.6 (3.6-5.2) mmol/L Chloride 106 (100-108) mmol/L Carbon Dioxide 24 (21-32) mmol/L Anion Gap 10.2 (5.0-14.0) mmol/L BUN 15 (7-18) mg/dL Creatinine 0.8 (0.6-1.0) mg/dL Est Cr Clr Drug Dosing 107.10 mL/min Estimated GFR (MDRD) > 60 (>60) Glucose 80 (74-106) mg/dL Calcium 8.7 (8.5-10.1) mg/dL Total Bilirubin 0.6 (0.2-1.0) mg/dL AST 21 (15-37) U/L ALT 23 (12-78) U/L Alkaline Phosphatase 77 (46-116) U/L Troponin I < 0.017 (0.000-0.056) ng/mL C-Reactive Protein < 0.05 (0.0-0.3) mg/dL Total Protein 6.2 L (6.4-8.2) g/dL Albumin 3.8 (3.4-5.0) g/dL Globulin 2.4 (2.3-3.5) g/dL Albumin/Globulin Ratio 1.6 (1.2-2.2) Meds: Medications Discontinued Medications Generic Name Dose Route Start Last Admin Trade Name Freq PRN Reason Stop Dose Admin Sodium Chloride 10 ml 11/04/18 12:01 11/04/18 12:05 Saline Flush FLUSH 10 ml ASDIRECTED PRN Administration Keep Vein Open - Re-Assessments/Exams Free Text/Narrative Re-Assessment/Exam: 11/04/18 12:09 The symptoms are strictly left sided and could be cardiac in nature. She has a previous episode of pleurisy but that was several years ago. We will see how things look metabolically. A pulmonary embolus is a possibility. She looks comfortable at this time. 11/04/18 12:10 11/04/18 15:36 Returned later to review test results and x-ray findings. Nothing alarming is seen today across multiple investigations. This may be yet another episode of pleurisy/chest wall pain. 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 She has taken prednisone for selected conditions in the past and that is okay. Prescriptions sent for prednisone 20 mg, 10 tablets; use as directed. Avoid painful activities to the extent possible. Return to ER if feeling worse in anyway. Departure - Departure Time of Disposition: 14:36 Disposition: Home, Self-Care 01 Condition: Good Clinical Impression: Pleurisy Instructions: Pleurisy Referrals: PCP,None [Primary Care Provider] - Forms: ED Department Discharge Additional Instructions: Start prednisone today. The prescription is for 5 days but the effect will persist in the body for several days after that. Avoid painful movements to the extent possible. If feeling worse in anyway return to emergency department. - My Orders Last 24 Hours: My Active Orders 11/04/18 11:59 EKG 12 Lead [EK] Routine 11/04/18 12:00 EKG Documentation Completion [RC] ASDIRECTED 11/04/18 12:01 Saline Lock Insert [OM.PC] Routine - Assessment/Plan Last 24 Hours: My Active Orders 11/04/18 11:59 EKG 12 Lead [EK] Routine 11/04/18 12:00 EKG Documentation Completion [RC] ASDIRECTED 11/04/18 12:01 Saline Lock Insert [OM.PC] Routine
[2018-11-04] MEDS ORDERED: Sodium Chloride 0.9% 10 ML Syringe FLUSH PRN (12:01)
--- NOTE | 2018-11-04 12:28 | CRLCR ---
INDICATION: left sided chest pressure today TECHNIQUE: Chest 2 views. COMPARISON: 01/19/18 FINDINGS: Cardiovascular and mediastinum: Heart size and vasculature are normal in caliber and appearance. Mediastinum is within normal limits. Lungs and pleural spaces: Lungs are clear. No sign of infiltrate or mass. No sign of pleural effusion. No pneumothorax. Bones and soft tissues: No significant findings. IMPRESSION: Unremarkable chest. Dictated by: Renato Moore MD @ 11/04/2018 12:27:27 (Electronically Signed)
[2018-11-04 14:22] VITALS: BP 103/75
== END 2018-11-04 14:58 | disposition home or self-care (01) ==
LOC: JP.ED 11:23
DX: R09.1 Pleurisy (principal); F17.200 Nicotine dependence, unspecified, uncomplicated; Z91.048 Other nonmedicinal substance allergy status; Z88.6 Allergy status to analgesic agent; Z88.1 Allergy status to other antibiotic agents; Z88.5 Allergy status to narcotic agent; Z88.0 Allergy status to penicillin; Z91.013 Allergy to seafood; Z98.890 Other specified postprocedural states; Z90.49 Acquired absence of other specified parts of digestive tract; Z90.710 Acquired absence of both cervix and uterus; Z90.722 Acquired absence of ovaries, bilateral
CPT/HCPCS: 36415; 71046; 80053; 84484; 85025; 85379; 86140; 93005; 99285-25

== ENCOUNTER 2020-06-17 22:17 | Emergency (ER) | payer SELFPAY ==
[2020-06-17] MEDS ORDERED: diphenhydrAMINE 50 MG/ML SDV IM ONE (22:22)
[2020-06-17] MEDS ORDERED: methylPREDNISolone Sodium Succinate 125 MG/2 ML SDV IM ONE (22:22)
[2020-06-17] MEDS ORDERED: EPINEPHrine 1 MG/ML SDV IM ONE (22:22)
[2020-06-17] MEDS ORDERED: Famotidine 20 MG/2 ML SDV IVPUSH ONE (22:23)
[2020-06-17] MEDS ORDERED: Sodium Chloride 0.9% 10 ML Syringe FLUSH PRN (22:23)
[2020-06-17] MEDS ORDERED: hydrOXYzine HCL 100 MG/2 ML SDV IM ONE (22:24)
[2020-06-17 22:26] VITALS: BP 121/89; PULSE 83
--- NOTE | 2020-06-17 22:32 | EDM.PDOC ---
ED HPI GENERAL MEDICAL PROBLEM - General Chief Complaint: Allergic Reaction Stated Complaint: ALLERGIC REACTION Time Seen by Provider: 06/17/20 22:22 Source of Information: Reports: Patient History Limitations: Reports: No Limitations - History of Present Illness INITIAL COMMENTS - FREE TEXT/NARRATIVE: Noreen is a 39-year-old female presenting to the ED for evaluation of allergic reaction/anaphylaxis that started this evening after she took her Lunesta and clonazepam. Patient reports that she also had been drinking red wine called "Dark [place]" which she had not previously consumed. The patient has a significant list of allergies and anaphylaxis related exposures. She presents with swelling of the tongue, hives, pruritus, and shortness of breath. She has a very muffled voice. There is no stridor. Her initial vitals show an SPO2 of 85% on room air. She was afebrile. - Related Data Allergies Allergy/AdvReac Type Severity Reaction Status Date / Time ciprofloxacin [From Cipro] Allergy Severe Anaphylactic Verified 11/04/18 11:35 Shock clindamycin Allergy Severe Anaphylactic Verified 11/04/18 11:35 Shock fish derived Allergy Severe Anaphylactic Verified 11/04/18 11:35 Shock ibuprofen Allergy Severe Anaphylactic Verified 11/04/18 11:35 Shock Penicillins Allergy Severe Anaphylactic Verified 11/04/18 11:35 Shock adhesive tape Allergy Blisters Verified 11/04/18 11:35 hydrocodone [From Vicodin] AdvReac Vomiting Verified 11/04/18 11:35 NSAIDS (Non-Steroidal AdvReac Nausea Verified 11/04/18 11:35 Anti-Inflamma oxycodone [From Percocet] AdvReac Vomiting Verified 11/04/18 11:35 tramadol AdvReac Vomiting Verified 11/04/18 11:35 Home Meds: Home Meds Cholecalciferol (Vitamin D3) [Vitamin D3] 5,000 unit PO DAILY 12/20/17 [History] Levomefolate Calcium [l-Methylfolate Calcium] 15 mg PO DAILY 12/20/17 [History] busPIRone HCl [busPIRone] 30 mg PO BID 12/20/17 [History] Zolpidem [Ambien] 5 mg PO BEDTIME PRN 02/07/18 [History] Eszopiclone [Lunesta] 1 mg PO BEDTIME PRN 11/04/18 [History] EPINEPHrine [Epipen] 0.3 mg IM ASDIRECTED PRN #1 pen 06/17/20 [Rx] clonazePAM [Clonazepam] 1 oz PO BEDTIME 06/17/20 [History] Past Medical History HEENT History: Reports: Impaired Vision Cardiovascular History: Reports: Other (See Below) Other Cardiovascular History: States hole in her heart Respiratory History: Reports: Bronchitis, Recurrent Gastrointestinal History: Reports: None Genitourinary History: Reports: UTI, Recurrent 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: Musculoskeletal History: Reports: Fracture Neurological History: Reports: TIA Other Neuro History: November and December TIA Psychiatric History: Reports: Depression - Infectious Disease History Infectious Disease History: Reports: Chicken Pox - Past Surgical History Head Surgeries/Procedures: Reports: None HEENT Surgical History: Reports: Tonsillectomy GI Surgical History: Reports: Appendectomy, Bariatric Procedure, Cholecystectomy, EGD Female Surgical History: Reports: Hysterectomy, Salpingo-Oophorectomy Musculoskeletal Surgical History: Reports: Arthroscopic Knee, Other (See Below) Other Musculoskeletal Surgeries/Procedures:: hip surgerys, and knee surgerys Social & Family History - Caffeine Use Caffeine Use: Reports: Coffee ED ROS ALLERGIC REACTION - Review of Systems Review Of Systems: See Below Constitutional: Reports: No Symptoms HEENT: Reports: No Symptoms, Throat Swelling, Other (Tongue swelling) Respiratory: Reports: Shortness of Breath Cardiovascular: Reports: No Symptoms Endocrine: Reports: No Symptoms GI/Abdominal: Reports: No Symptoms : Reports: No Symptoms Musculoskeletal: Reports: No Symptoms Skin: Reports: Erythema, Urticaria Neurological: Reports: No Symptoms Psychiatric: Reports: Anxiety Hematologic/Lymphatic: Reports: No Symptoms Immunologic: Reports: No Symptoms ED EXAM GENERAL NO PERIP PULSE - Physical Exam Exam: See Below Exam Limited By: No Limitations General Appearance: Alert, Anxious, Moderate Distress Eye Exam: Bilateral Eye: EOMI, PERRL Throat/Mouth: Other (Swelling of the tongue in the retropharynx. Patient is able to handle her secretions. Muffled voice.) Head: Normocephalic, Other (Flushing of the face). No: Facial Swelling, Facial Tenderness Neck: Supple, Non-Tender, Other (Flushing of the neck) Respiratory/Chest: No Respiratory Distress, Lungs Clear, Normal Breath Sounds, No Accessory Muscle Use, Other (Flushing of the anterior chest). No: Wheezing, Stridor Cardiovascular: Normal Peripheral Pulses, Regular Rate, Rhythm, No Murmur GI/Abdominal: Normal Bowel Sounds, Soft, Non-Tender Back Exam: Normal Inspection, Full Range of Motion Extremities: Normal Inspection, Normal Range of Motion, No Pedal Edema Neurological: Alert, Oriented, Normal Cognition, No Motor/Sensory Deficits Psychiatric: Normal Affect, Normal Mood Skin Exam: Warm, Dry, Erythema, Rash (Urticaria) Lymphatic: No Adenopathy Course - Vital Signs Last Recorded V/S: Last Vital Signs Temp 36.8 C 06/17/20 22:22 Pulse 83 06/17/20 22:22 Resp 16 06/17/20 22:22 BP 121/89 06/17/20 22:22 Pulse Ox 98 06/17/20 22:22 - Orders/Labs/Meds Orders: Active Orders 24 hr Category Date Time Status Sodium Chloride 0.9% [Saline Flush] Med 06/17/20 22:23 Active 10 ml FLUSH ASDIRECTED PRN Saline Lock Insert [OM.PC] Routine Oth 06/17/20 22:23 Ordered Medication Orders Sodium Chloride (Sodium Chloride 0.9% 10 Ml Syringe) 10 ml FLUSH ASDIRECTED PRN PRN Reason: Keep Vein Open Meds: Medications Generic Name Dose Route Start Last Admin Trade Name Freq PRN Reason Stop Dose Admin Sodium Chloride 10 ml 06/17/20 22:23 Sodium Chloride 0.9% 10 Ml Syringe FLUSH ASDIRECTED PRN Keep Vein Open Discontinued Medications Generic Name Dose Route Start Last Admin Trade Name Freq PRN Reason Stop Dose Admin Diphenhydramine HCl 50 mg 06/17/20 22:22 06/17/20 22:41 Diphenhydramine 50 Mg/Ml Sdv IM 06/17/20 22:23 50 mg ONETIME ONE Administration Epinephrine HCl 0.4 mg 06/17/20 22:22 06/17/20 22:41 Epinephrine 1 Mg/Ml Sdv IM 06/17/20 22:23 0.4 mg ONETIME ONE Administration Famotidine 20 mg 06/17/20 22:23 06/17/20 22:42 Famotidine 20 Mg/2 Ml Sdv IVPUSH 06/17/20 22:24 20 mg ONETIME ONE Administration Hydromorphone HCl 0.5 mg 06/17/20 23:31 Hydromorphone 0.5 Mg/0.5 Ml Syringe IVPUSH 06/17/20 23:32 ONETIME ONE Hydroxyzine HCl 25 mg 06/17/20 22:24 06/17/20 22:43 Hydroxyzine Hcl 100 Mg/2 Ml Sdv IM 06/17/20 22:25 25 mg ONETIME ONE Administration Methylprednisolone Sodium Succinate 125 mg 06/17/20 22:22 06/17/20 22:43 Methylprednisolone Sodium Succinate 125 Mg/2 Ml Sdv IM 06/17/20 22:23 125 mg ONETIME ONE Administration - Re-Assessments/Exams Free Text/Narrative Re-Assessment/Exam: 06/17/20 22:32 upon arrival to the ED, the patient was brought back to the stabilization room 10 and placed in a gown. I examined her quickly and ordered epinephrine 0.4 mg subcu, diphenhydramine 50 mg IM, Solu-Medrol 125 mg IM, Pepcid 20 mg IV, and hydroxyzine 25 mg IM. Patient was placed on monitor and oxygen at 2 L/min by nasal cannula bringing her SPO2 up to 98%. 06/17/20 23:33 patient is doing much better and at this time I believe she is suitable for discharge home. I am going to prescribe her an EpiPen as this is more worrisome for future anaphylactic reactions. She should follow-up with her primary care provider to discuss what may have triggered this. It is unclear whether was the clonazepam, Lunesta, or the red wine. Departure - Departure Time of Disposition: 23:34 Disposition: Home, Self-Care 01 Clinical Impression: Anaphylaxis Qualifiers: Encounter type: initial encounter Qualified Code(s): T78.2XXA - Anaphylactic shock, unspecified, initial encounter - Discharge Information Instructions: Anaphylactic Reaction, Adult, [id number] Referrals: PCP,None [Primary Care Provider] - Forms: ED Department Discharge Care Plan Goals: I have prescribed an EpiPen for you for use as needed when another severe reaction starts. Follow-up with your primary care provider to discuss what may have triggered this anaphylactic reaction tonight. Be careful when using the medications you took today as they may be triggers to your allergy. This can occur despite being on medications for many years. Sepsis Event Note (ED) - Evaluation Sepsis Screening Result: No Definite Risk - Focused Exam Vital Signs: Vital Signs Temp Pulse Resp BP Pulse Ox 06/17/20 22:22 36.8 C 83 16 121/89 98 - Problem List & Annotations (1) Anaphylaxis SNOMED Code(s): 15952311 Code(s): T78.2XXA - ANAPHYLACTIC SHOCK, UNSPECIFIED, INITIAL ENCOUNTER Status: Acute Priority: High Current Visit: Yes Qualifiers: Encounter type: initial encounter Qualified Code(s): T78.2XXA - Anaphylactic shock, unspecified, initial encounter - Problem List Review Problem List Initiated/Reviewed/Updated: Yes - My Orders Last 24 Hours: My Active Orders 06/17/20 22:23 Sodium Chloride 0.9% [Saline Flush] 10 ml FLUSH ASDIRECTED PRN Saline Lock Insert [OM.PC] Routine - Assessment/Plan Last 24 Hours: My Active Orders 06/17/20 22:23 Sodium Chloride 0.9% [Saline Flush] 10 ml FLUSH ASDIRECTED PRN Saline Lock Insert [OM.PC] Routine
[2020-06-17] MEDS ORDERED: HYDROmorphone 0.5 MG/0.5 ML Syringe IVPUSH ONE (23:31)
== END 2020-06-17 23:54 | disposition home or self-care (01) ==
LOC: JP.ED 22:17
DX: T78.2XXA Anaphylactic shock, unspecified, initial encounter (principal); Z88.0 Allergy status to penicillin; Z88.1 Allergy status to other antibiotic agents; Z91.013 Allergy to seafood; Z88.5 Allergy status to narcotic agent; Z88.6 Allergy status to analgesic agent; Z91.018 Allergy to other foods
CPT/HCPCS: 96372; 96374; 99284-25; J0171; J1200; J2930; J3410; J3490

== ENCOUNTER 2020-06-18 15:47 | Emergency (ER) | payer SELFPAY ==
[2020-06-18] MEDS ORDERED: Famotidine 20 MG Tab PO ONE (16:06)
[2020-06-18] MEDS ORDERED: predniSONE 20 MG Tab PO ONE (16:07)
[2020-06-18] MEDS ORDERED: diphenhydrAMINE 25 MG Cap PO ONE (16:07)
--- NOTE | 2020-06-18 16:14 | EDM.PDOC ---
ED HPI GENERAL MEDICAL PROBLEM - General Chief Complaint: Allergic Reaction Stated Complaint: ALLERGIC REACTION Time Seen by Provider: 06/18/20 15:55 Source of Information: Reports: Patient, Old Records, RN History Limitations: Reports: No Limitations - History of Present Illness INITIAL COMMENTS - FREE TEXT/NARRATIVE: 39 yo female was seen here last night for an allergic rxn of uncertain cause. She had at that time a swollen tongue and itching. She was given a variety of meds including epinephrine and was improved at the time of discharge. Since discharge she took no new meds overnight or this morning. She went to work and this afternoon noted her tongue to start swelling and she started getting itchy again without a rash. When she got home from work she took diphenhydramine 50 mg and when she was not significantly better an hour later she came in here. She was unable to get her Rx for an EpiPen filled due to not being able to afford it. Does not appear overly sleepy from the diphenhydramine she took before coming in. Claims all H1 and H2 blockers make her so sleepy she cannot work. 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) (See HPI) - Related Data Allergies Allergy/AdvReac Type Severity Reaction Status Date / Time ciprofloxacin [From Cipro] Allergy Severe Anaphylactic Verified 06/18/20 15:57 Shock clindamycin Allergy Severe Anaphylactic Verified 06/18/20 15:57 Shock fish derived Allergy Severe Anaphylactic Verified 06/18/20 15:57 Shock ibuprofen Allergy Severe Anaphylactic Verified 06/18/20 15:57 Shock Penicillins Allergy Severe Anaphylactic Verified 06/18/20 15:57 Shock adhesive tape Allergy Blisters Verified 06/18/20 15:57 hydrocodone [From Vicodin] AdvReac Vomiting Verified 06/18/20 15:57 NSAIDS (Non-Steroidal AdvReac Nausea Verified 06/18/20 15:57 Anti-Inflamma oxycodone [From Percocet] AdvReac Vomiting Verified 06/18/20 15:57 tramadol AdvReac Vomiting Verified 06/18/20 15:57 Home Meds: Home Meds Cholecalciferol (Vitamin D3) [Vitamin D3] 5,000 unit PO DAILY 12/20/17 [History] Levomefolate Calcium [l-Methylfolate Calcium] 15 mg PO DAILY 12/20/17 [History] busPIRone HCl [busPIRone] 30 mg PO BID 12/20/17 [History] Zolpidem [Ambien] 5 mg PO BEDTIME PRN 02/07/18 [History] Eszopiclone [Lunesta] 1 mg PO BEDTIME PRN 11/04/18 [History] EPINEPHrine [Epipen] 0.3 mg IM ASDIRECTED PRN #1 pen 06/17/20 [Rx] clonazePAM [Clonazepam] 1 oz PO BEDTIME 06/17/20 [History] Past Medical History HEENT History: Reports: Impaired Vision Cardiovascular History: Reports: Other (See Below) Other Cardiovascular History: States hole in her heart Respiratory History: Reports: Bronchitis, Recurrent Gastrointestinal History: Reports: None Genitourinary History: Reports: UTI, Recurrent 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: Musculoskeletal History: Reports: Fracture Neurological History: Reports: TIA Other Neuro History: November and December TIA Psychiatric History: Reports: Depression - Infectious Disease History Infectious Disease History: Reports: Chicken Pox - Past Surgical History Head Surgeries/Procedures: Reports: None HEENT Surgical History: Reports: Tonsillectomy Cardiovascular Surgical History: Reports: None GI Surgical History: Reports: Appendectomy, Bariatric Procedure, Cholecystectomy, EGD Female Surgical History: Reports: Hysterectomy, Salpingo-Oophorectomy Neurological Surgical History: Reports: None Musculoskeletal Surgical History: Reports: Arthroscopic Knee, Other (See Below) Other Musculoskeletal Surgeries/Procedures:: hip surgerys, and knee surgerys Social & Family History - Tobacco Use Tobacco Use Status *Q: Current Every Day Tobacco User Years of Tobacco use: 20 Packs/Tins Daily: 0.5 - Caffeine Use Caffeine Use: Reports: Coffee, Tea - Recreational Drug Use Recreational Drug Use: No ED ROS ALLERGIC REACTION - Review of Systems Review Of Systems: See Below Constitutional: Reports: No Symptoms HEENT: Reports: Other (tongue swelling) Respiratory: Reports: No Symptoms Cardiovascular: Reports: No Symptoms GI/Abdominal: Reports: No Symptoms : Reports: No Symptoms Musculoskeletal: Reports: No Symptoms Skin: Reports: Pruritis. Denies: Rash Neurological: Reports: No Symptoms ED EXAM GENERAL NO PERIP PULSE - Physical Exam Exam: See Below Exam Limited By: No Limitations General Appearance: Alert, WD/WN, Mild Distress Eye Exam: Bilateral Eye: Conjunctival Injection (mild) Ears: Normal External Exam, Normal Canal, Hearing Grossly Normal, Normal TMs Nose: Normal Inspection, No Blood Throat/Mouth: Normal Inspection, Normal Lips, Normal Oropharynx, Normal Voice, No Airway Compromise, Other (tongue slightly swollen) Head: Atraumatic, Normocephalic Neck: Normal Inspection Respiratory/Chest: No Respiratory Distress, Lungs Clear, Normal Breath Sounds, No Accessory Muscle Use. No: Wheezing Cardiovascular: Regular Rate, Rhythm, No Edema Extremities: Normal Inspection, Normal Range of Motion, Non-Tender, No Pedal Edema. No: Pedal Edema Neurological: Alert, Oriented, CN II-XII Intact, Normal Cognition, No Motor/Sensory Deficits Psychiatric: Normal Affect, Normal Mood Skin Exam: Warm, Dry, Intact, Normal Color, No Rash, Excoriations (from scratching) Course - Vital Signs Last Recorded V/S: Last Vital Signs Temp 36.7 C 06/18/20 15:54 Pulse 57 L 06/18/20 17:14 Resp 16 06/18/20 15:54 BP 104/72 06/18/20 17:14 Pulse Ox 97 06/18/20 17:14 - Orders/Labs/Meds Meds: Medications Discontinued Medications Generic Name Dose Route Start Last Admin Trade Name Freq PRN Reason Stop Dose Admin Diphenhydramine HCl 25 mg 06/18/20 16:07 06/18/20 16:13 Diphenhydramine 25 Mg Cap PO 06/18/20 16:08 25 mg ONETIME ONE Administration Famotidine 40 mg 06/18/20 16:06 06/18/20 16:13 Famotidine 20 Mg Tab PO 06/18/20 16:07 40 mg ONETIME ONE Administration Prednisone 20 mg 06/18/20 16:07 06/18/20 16:14 Prednisone 20 Mg Tab PO 06/18/20 16:08 20 mg ONETIME ONE Administration - Re-Assessments/Exams Free Text/Narrative Re-Assessment/Exam: 06/18/20 16:33 on recheck her sx's are the same now, not any worse. Free Text/Narrative Re-Assessment/Exam: 06/18/20 17:19 Is feeling quite a bit better now, wants to go home. Departure - Departure Time of Disposition: 17:25 Disposition: Home, Self-Care 01 Condition: Fair Clinical Impression: Allergic reaction Qualifiers: Encounter type: subsequent encounter Qualified Code(s): T78.40XD - Allergy, unspecified, subsequent encounter - Discharge Information *PRESCRIPTION DRUG MONITORING PROGRAM REVIEWED*: Not Applicable *COPY OF PRESCRIPTION DRUG MONITORING REPORT IN PATIENT CHRIS: Not Applicable Instructions: Allergies, Adult, [id number] Referrals: PCP,None [Primary Care Provider] - Forms: ED Department Discharge Additional Instructions: Take diphenhydramine 50-75 mg at bedtime. Take prednisone 20 mg every 12 hrs with food. F/U with your provider DARLENE to discuss continued treatment vs. allergy testing. May add famotidine 40 mg a day at bedtime starting tomorrow if any residual sx's persist. Return as needed. Sepsis Event Note (ED) - Evaluation Sepsis Screening Result: No Definite Risk - Focused Exam Vital Signs: Vital Signs Temp Pulse Resp BP Pulse Ox 06/18/20 17:14 57 L 104/72 97 06/18/20 17:07 57 L 103/70 95 06/18/20 16:42 60 112/77 96 06/18/20 15:54 36.7 C 79 16 110/60 98
[2020-06-18 17:07] VITALS: PULSE 57
[2020-06-18 17:15] VITALS: BP 104/72
== END 2020-06-18 17:37 | disposition home or self-care (01) ==
LOC: JP.ED 15:47
DX: L29.9 Pruritus, unspecified (principal); T44.5X5A Adverse effect of predominantly beta-adrenoreceptor agonists, initial encounter; Z88.1 Allergy status to other antibiotic agents; Z88.0 Allergy status to penicillin; Z88.5 Allergy status to narcotic agent; Z88.6 Allergy status to analgesic agent; Z91.013 Allergy to seafood; Z91.018 Allergy to other foods; Z72.0 Tobacco use
CPT/HCPCS: 99283; A9270; J7512

== ENCOUNTER 2020-07-15 15:13 | Observation (INO) | payer BC ==
[2020-07-15] MEDS ORDERED: HYDROmorphone 0.5 MG/0.5 ML Syringe IVPUSH ONE ×2 (15:49→17:24)
[2020-07-15] MEDS ORDERED: Sodium Chloride 0.9% 1,000 ML IV SCH (16:00)
--- NOTE | 2020-07-15 17:25 | EDM.PDOC ---
ED HPI GENERAL MEDICAL PROBLEM - General Chief Complaint: Abdominal Pain Stated Complaint: SEVERE STOMACH PAIN Time Seen by Provider: 07/15/20 15:35 Source of Information: Reports: Patient, Family History Limitations: Reports: No Limitations - History of Present Illness INITIAL COMMENTS - FREE TEXT/NARRATIVE: 39-year-old female who has been having worsening abdominal pain over the past several weeks. Over the last 48 hours it has been especially bad, pain with everything she eats or drinks and it just wants to "come back up". Her bowels are moving, she does not feel distended, but she does have diffuse abdominal pain especially upper abdomen. Onset: Gradual Duration: Week(s): (Symptoms have been present for the past 4 weeks, especially worse the last 2 days) Middle Abdomen Pain Score (Numeric/FACES): 9 - Related Data Allergies Allergy/AdvReac Type Severity Reaction Status Date / Time ciprofloxacin [From Cipro] Allergy Severe Anaphylactic Verified 07/15/20 15:29 Shock clindamycin Allergy Severe Anaphylactic Verified 07/15/20 15:29 Shock fish derived Allergy Severe Anaphylactic Verified 07/15/20 15:29 Shock ibuprofen Allergy Severe Anaphylactic Verified 07/15/20 15:29 Shock Penicillins Allergy Severe Anaphylactic Verified 07/15/20 15:29 Shock adhesive tape Allergy Blisters Verified 07/15/20 15:29 hydrocodone [From Vicodin] AdvReac Vomiting Verified 07/15/20 15:29 NSAIDS (Non-Steroidal AdvReac Nausea Verified 07/15/20 15:29 Anti-Inflamma oxycodone [From Percocet] AdvReac Vomiting Verified 07/15/20 15:29 tramadol AdvReac Vomiting Verified 07/15/20 15:29 Home Meds: Home Meds Cholecalciferol (Vitamin D3) [Vitamin D3] 5,000 unit PO DAILY 12/20/17 [History] Levomefolate Calcium [l-Methylfolate Calcium] 15 mg PO DAILY 12/20/17 [History] busPIRone HCl [busPIRone] 30 mg PO BID 12/20/17 [History] Zolpidem [Ambien] 5 mg PO BEDTIME PRN 02/07/18 [History] Eszopiclone [Lunesta] 1 mg PO BEDTIME PRN 11/04/18 [History] EPINEPHrine [Epipen] 0.3 mg IM ASDIRECTED PRN #1 pen 06/17/20 [Rx] clonazePAM [Clonazepam] 1 tab PO BEDTIME 06/17/20 [History] Past Medical History HEENT History: Reports: Impaired Vision Cardiovascular History: Reports: Other (See Below) Other Cardiovascular History: States hole in her heart Respiratory History: Reports: Bronchitis, Recurrent Gastrointestinal History: Reports: None Genitourinary History: Reports: UTI, Recurrent REWEAVER History: Reports: Musculoskeletal History: Reports: Fracture Neurological History: Reports: TIA Other Neuro History: November and December TIA Psychiatric History: Reports: Depression - Infectious Disease History Infectious Disease History: Reports: Chicken Pox - Past Surgical History Head Surgeries/Procedures: Reports: None HEENT Surgical History: Reports: Tonsillectomy Cardiovascular Surgical History: Reports: None GI Surgical History: Reports: Appendectomy, Bariatric Procedure, Cholecystectomy, EGD Female Surgical History: Reports: Hysterectomy, Salpingo-Oophorectomy Neurological Surgical History: Reports: None Musculoskeletal Surgical History: Reports: Arthroscopic Knee, Other (See Below) Other Musculoskeletal Surgeries/Procedures:: hip surgerys, and knee surgerys Social & Family History - Caffeine Use Caffeine Use: Reports: Coffee, Tea ED ROS GENERAL - Review of Systems Review Of Systems: See Below Constitutional: Reports: Malaise, Decreased Appetite. Denies: Fever, Chills HEENT: Reports: No Symptoms Respiratory: Denies: Shortness of Breath Cardiovascular: Denies: Chest Pain, Palpitations GI/Abdominal: Reports: Abdominal Pain, Nausea, Vomiting. Denies: Constipation, Diarrhea Skin: Reports: No Symptoms Neurological: Denies: Dizziness, Headache Psychiatric: Reports: Anxiety ED EXAM, GI/ABD - Physical Exam Exam: See Below Exam Limited By: No Limitations General Appearance: Alert, Mild Distress (Arrived fairly uncomfortable, only able to lie on her left side) Eyes: Bilateral: Normal Appearance (No jaundice) Head: Atraumatic Respiratory/Chest: No Respiratory Distress, Lungs Clear Cardiovascular: Regular Rate, Rhythm. No: Tachycardia GI/Abdominal Exam: Normal Bowel Sounds, Tender (Fairly tender to palpation across the upper abdomen but no focal guarding or rebound tenderness) Extremities: No: Pedal Edema Neurological: Alert, Oriented Psychiatric: Anxious Skin Exam: Warm, Dry Course - Vital Signs Last Recorded V/S: Last Vital Signs Temp 95.7 F L 07/16/20 07:17 Pulse 50 L 07/16/20 07:17 Resp 14 07/16/20 07:17 BP 94/62 07/16/20 07:17 Pulse Ox 99 07/16/20 07:17 - Orders/Labs/Meds Orders: Active Orders 24 hr Category Date Time Status Patient Status [ADT] Routine ADT 07/15/20 19:13 Active Up ad Misa [RC] ASDIRECTED Care 07/15/20 19:12 Active Vital Signs [RC] Q4H Care 07/15/20 19:13 Active Clear Liquid Diet [DIET] Diet 07/15/20 Dinner Active Nothing per Oral After Midnight Diet [DIET] Diet 07/16/20 Breakfast Active Resuscitation Status Routine Resus Stat 07/15/20 19:12 Ordered Medication Orders Hydromorphone HCl (Hydromorphone 0.5 Mg/0.5 Ml Syringe) 0.5 mg IVPUSH Q3H PRN PRN Reason: Pain Last Admin: 07/16/20 07:23 Dose: 0.5 mg Documented by: Admin: 07/16/20 03:56 Dose: 0.5 mg Documented by: Admin: 07/15/20 22:58 Dose: 0.5 mg Documented by: MARIA ESTHER Admin: 07/15/20 20:10 Dose: 0.5 mg Documented by: MARIA ESTHER Dextrose/Lactated Ringer's (Dextrose 5%-Lactated Ringers) 1,000 mls @ 200 mls/hr IV ASDIRECTED [facility] Last Admin: 07/16/20 01:23 Dose: 200 mls/hr Documented by: MARIA ESTHER Infusion: 07/16/20 01:03 Dose: 200 mls/hr Documented by: MARIA ESTHER Admin: 07/15/20 20:03 Dose: 200 mls/hr Documented by: MARIA ESTHER Pantoprazole Sodium (Pantoprazole 40 Mg Vial) 40 mg IVPUSH Q12H [facility] Labs: Laboratory Tests 07/15/20 07/15/20 07/15/20 Range/Units 16:00 16:00 16:00 WBC 5.2 (4.5-11.0) K/uL RBC 4.42 (3.30-5.50) M/uL Hgb 13.6 (12.0-15.0) g/dL Hct 41.3 (36.0-48.0) % MCV 93 (80-98) fL MCH 31 (27-31) pg MCHC 33 (32-36) % Plt Count 252 (150-400) K/uL Neut % (Auto) 58.9 (36-66) % Lymph % (Auto) 33.8 (24-44) % Petroleum % (Auto) 5.4 (2-6) % Eos % (Auto) 1.5 L (2-4) % Baso % (Auto) 0.4 (0-1) % Sodium 143 (140-148) mmol/L Potassium 4.2 (3.6-5.2) mmol/L Chloride 107 (100-108) mmol/L Carbon Dioxide 24 (21-32) mmol/L Anion Gap 11.8 (5.0-14.0) mmol/L BUN 7 D (7-18) mg/dL Creatinine 0.7 (0.6-1.0) mg/dL Est Cr Clr Drug Dosing 118.21 mL/min Estimated GFR (MDRD) > 60 (>60) Glucose 88 (74-106) mg/dL Lactic Acid 0.6 (0.4-2.0) mmol/L Calcium 8.7 (8.5-10.1) mg/dL Total Bilirubin 0.4 (0.2-1.0) mg/dL AST 19 (15-37) U/L ALT 24 (12-78) U/L Alkaline Phosphatase 85 (46-116) U/L Total Protein 6.2 L (6.4-8.2) g/dL Albumin 3.6 (3.4-5.0) g/dL Globulin 2.6 (2.3-3.5) g/dL Albumin/Globulin Ratio 1.4 (1.2-2.2) Lipase 155 (73-393) U/L Meds: Medications Generic Name Dose Route Start Last Admin Trade Name Freq PRN Reason Stop Dose Admin Hydromorphone HCl 0.5 mg 07/15/20 19:18 07/16/20 07:23 Hydromorphone 0.5 Mg/0.5 Ml Syringe IVPUSH 0.5 mg Q3H PRN Administration Pain Dextrose/Lactated Ringer's 1,000 mls @ 200 mls/hr 07/15/20 19:30 07/16/20 01:23 Dextrose 5%-Lactated Ringers IV 200 mls/hr ASDIRECTED MAYRA Administration Pantoprazole Sodium 40 mg 07/16/20 09:00 Pantoprazole 40 Mg Vial IVPUSH Q12H MAYRA Discontinued Medications Generic Name Dose Route Start Last Admin Trade Name Lionq PRN Reason Stop Dose Admin Hydromorphone HCl 0.5 mg 07/15/20 15:49 07/15/20 16:04 Hydromorphone 0.5 Mg/0.5 Ml Syringe IVPUSH 07/15/20 15:50 0.5 mg ONETIME ONE Administration Hydromorphone HCl 0.5 mg 07/15/20 17:24 07/15/20 17:29 Hydromorphone 0.5 Mg/0.5 Ml Syringe IVPUSH 07/15/20 17:25 0.5 mg ONETIME ONE Administration Sodium Chloride 1,000 mls @ 500 mls/hr 07/15/20 16:00 07/15/20 16:05 Normal Saline IV 500 mls/hr ASDIRECTED MAYRA Administration Sodium Chloride 80 mls @ 3 mls/sec 07/15/20 17:45 07/15/20 17:43 Normal Saline IV 3 mls/sec ASDIRECTED MAYRA Administration Iopamidol 100 ml 07/15/20 17:45 07/15/20 17:43 Iopamidol 612 Mg/Ml 100 Ml Bottle IV 100 ml . DIRECTED MAYRA Administration Pantoprazole Sodium 40 mg 07/15/20 18:20 07/15/20 18:49 Pantoprazole 40 Mg Vial IVPUSH 07/15/20 18:21 40 mg ONETIME ONE Administration - Re-Assessments/Exams Free Text/Narrative Re-Assessment/Exam: 07/15/20 18:53 An IV was started and the patient was hydrated with 1 L of normal saline, 0.5 mg of IV Dilaudid eventually was needed for pain control. CBC, CMP, lipase and lactic acid were drawn and all her labs were normal. At that time a CT of the abdomen and pelvis with IV contrast was obtained and that was also normal. Patient did not get a lot of relief from the IV Dilaudid and was concerned she was unable to take anything oral so her case was discussed with Dr. Velásquez. She will be started on IV Protonix, hydrated with D5 LR, and admitted for anticipated EGD tomorrow morning. 40 mg of IV Protonix was given now. Departure - Departure Time of Disposition: 19:09 Disposition: Admitted As Inpatient 64 Clinical Impression: Abdominal pain Qualifiers: Abdominal location: upper abdomen, unspecified Qualified Code(s): R10.10 - Upper abdominal pain, unspecified Nausea and vomiting Qualifiers: Vomiting Intractability: non-intractable - Discharge Information Sepsis Event Note (ED) - Evaluation Sepsis Screening Result: No Definite Risk
[2020-07-15] MEDS ORDERED: Sodium Chloride 0.9% 80 ML IV SCH (17:45)
[2020-07-15] MEDS ORDERED: Iopamidol 612 MG/ML 100 ML Bottle IV SCH (17:45)
--- NOTE | 2020-07-15 18:13 | CRLCT ---
For Patients: As a result of the Cures Act, medical imaging exams and procedure reports are released immediately into your electronic medical record. You may view this report before your referring provider. If you have questions, please contact your health care provider. INDICATION: Abdominal pain. COMPARISON: 03 February 2018. TECHNIQUE: 100 mL Isovue-300 IV contrast. FINDINGS: Bariatric surgery changes. Cindy-en-Y gastric bypass. Cholecystectomy. Mild post cholecystectomy biliary ductal dilatation. Normal pancreas. Normal spleen. Normal enhancing kidneys. No adrenal nodule. Small splenule inferior splenic hilum. No pathologic retroperitoneal or mesenteric adenopathy. The appendix is identified. No dilated large or small bowel. No air or fluid in the peritoneum. Abdominal wall is intact. Uterus is absent. No significant bone finding. IMPRESSION: No source for abdominal pain. Cindy-en-Y gastric bypass. Cholecystectomy. Hysterectomy. Probable appendectomy. Please note that all CT scans at this facility use dose modulation, iterative reconstruction, and/or weight-based dosing when appropriate to reduce radiation dose to as low as reasonably achievable. Dictated by Terell Bonilla MD @ 07/15/2020 6:13:[address] Terell Bonilla @ Jul 15 2020 6:13PM
[2020-07-15] MEDS ORDERED: Pantoprazole 40 MG Vial IVPUSH ONE (18:20)
[2020-07-15] MEDS: Dextrose 5%-Lactated Ringers 1,000 ML IV SCH (20:03)
[2020-07-15] MEDS: HYDROmorphone 0.5 MG/0.5 ML Syringe IVPUSH PRN ×2 (20:10→22:58)
[2020-07-16 00:14] LABS: CORONAVIRUS COVID-19 NAA NEGATIVE (NEGATIVE)
[2020-07-16] MEDS: Dextrose 5%-Lactated Ringers 1,000 ML IV SCH ×2 (01:23→11:38)
[2020-07-16] MEDS: HYDROmorphone 0.5 MG/0.5 ML Syringe IVPUSH PRN ×5 (03:56→21:47)
--- NOTE | 2020-07-16 07:49 | PCM.HP.2 ---
H&P History of Present Illness - General Date of Service: 07/16/20 Admit Problem/Dx: Admission Diagnosis/Problem Admission Diagnosis/Problem Abdominal pain Source of Information: Patient History Limitations: Reports: No Limitations - History of Present Illness Initial Comments - Free Text/Narative: Noreen states she has had abdominal pain in her mid epigastric area on and off for about 2 months. She is in the process of getting new insurance so was waiting to come into the clinic and transfer her Bariatric Care to [place], [place]. Thursday morning the pain was so severe she couldn't manage at home and went to the ED and was admitted for IV Fluids, Pain management and will be having an EGD today. Doesn't remember when her last Bariatric Follow Up labs were - maybe 3 years ago. Has been taking all the recommended vitamins. Onset of Symptoms: Reports: Gradual Duration of Symptoms: Reports: Week(s): (12) Location: Reports: Abdomen Quality: Reports: Burning, Pressure, Stabbing, Throbbing Severity: Severe Improves with: Reports: Medication Worsens with: Reports: Eating Context: Reports: Sick Contact Associated Symptoms: Reports: Loss of Appetite, Nausea/Vomiting, Weakness Middle Abdomen Pain Score (Numeric/FACES): 9 - Related Data Allergies/Adverse Reactions: Allergies Allergy/AdvReac Type Severity Reaction Status Date / Time ciprofloxacin [From Cipro] Allergy Severe Anaphylactic Verified 07/15/20 15:29 Shock clindamycin Allergy Severe Anaphylactic Verified 07/15/20 15:29 Shock fish derived Allergy Severe Anaphylactic Verified 07/15/20 15:29 Shock ibuprofen Allergy Severe Anaphylactic Verified 07/15/20 15:29 Shock Penicillins Allergy Severe Anaphylactic Verified 07/15/20 15:29 Shock adhesive tape Allergy Blisters Verified 07/15/20 15:29 hydrocodone [From Vicodin] AdvReac Vomiting Verified 07/15/20 15:29 NSAIDS (Non-Steroidal AdvReac Nausea Verified 07/15/20 15:29 Anti-Inflamma oxycodone [From Percocet] AdvReac Vomiting Verified 07/15/20 15:29 tramadol AdvReac Vomiting Verified 07/15/20 15:29 Home Medications: Home Meds Cholecalciferol (Vitamin D3) [Vitamin D3] 5,000 unit PO DAILY 12/20/17 [History] Levomefolate Calcium [l-Methylfolate Calcium] 15 mg PO DAILY 12/20/17 [History] busPIRone HCl [busPIRone] 30 mg PO BID 12/20/17 [History] Zolpidem [Ambien] 5 mg PO BEDTIME PRN 02/07/18 [History] Eszopiclone [Lunesta] 1 mg PO BEDTIME PRN 11/04/18 [History] EPINEPHrine [Epipen] 0.3 mg IM ASDIRECTED PRN #1 pen 06/17/20 [Rx] clonazePAM [Clonazepam] 1 tab PO BEDTIME 06/17/20 [History] Past Medical History HEENT History: Reports: Impaired Vision Cardiovascular History: Reports: Other (See Below) Other Cardiovascular History: States hole in her heart Respiratory History: Reports: Bronchitis, Recurrent Gastrointestinal History: Reports: None Genitourinary History: Reports: UTI, Recurrent VERIFY REP History: Reports: Musculoskeletal History: Reports: Fracture Neurological History: Reports: TIA Other Neuro History: November and December TIA Psychiatric History: Reports: Depression - Infectious Disease History Infectious Disease History: Reports: Chicken Pox - Past Surgical History Head Surgeries/Procedures: Reports: None HEENT Surgical History: Reports: Tonsillectomy Other HEENT Surgeries/Procedures: wears glasses Cardiovascular Surgical History: Reports: None GI Surgical History: Reports: Appendectomy, Bariatric Procedure, Cholecystec sonu, EGD Female Surgical History: Reports: Hysterectomy, Salpingo-Oophorectomy Neurological Surgical History: Reports: None Musculoskeletal Surgical History: Reports: Arthroscopic Knee, Other (See Below) Other Musculoskeletal Surgeries/Procedures:: hip surgerys, and knee surgerys Social & Family History - Tobacco Use Tobacco Use Status *Q: Light Tobacco User Years of Tobacco use: 20 Packs/Tins Daily: 0.5 Used Tobacco, but Quit: No Second Hand Smoke Exposure: No - Caffeine Use Caffeine Use: Reports: Coffee Other Caffeine Use: 3 cups per day - Recreational Drug Use Recreational Drug Use: No H&P Review of Systems - Review of Systems: Review Of Systems: Comprehensive ROS is negative, except as noted in HPI. Exam - Exam Exam: See Below - Vital Signs Vital Signs: Last Vital Signs Temp 95.7 F L 07/16/20 07:17 Pulse 50 L 07/16/20 07:17 Resp 14 07/16/20 07:17 BP 94/62 06/07/21 07:17 Pulse Ox 99 07/16/20 07:17 Weight: 175 lb 7.807 oz - Exam Quality Assessment: DVT Prophylaxis General: Alert, Oriented, Moderate Distress HEENT: PERRLA, Conjunctiva Clear Neck: Supple, Trachea Midline Lungs: Clear to Auscultation, Normal Respiratory Effort Cardiovascular: Regular Rate, Regular Rhythm GI/Abdominal Exam: Guarding, Tender (mid epigastric area) (Female) Exam: Deferred Rectal (Female) Exam: Deferred Back Exam: Normal Inspection, Full Range of Motion Extremities: Normal Inspection, Normal Range of Motion, No Pedal Edema Skin: Warm, Dry, Intact Neurological: Cranial Nerves Intact, Reflexes Equal Bilateral Neuro Extensive - Mental Status: Alert, Oriented x3, Normal Mood/Affect Neuro Extensive - Motor, Sensory, Reflexes: CN II-XII Intact Psychiatric: Alert, Normal Affect - Patient Data Lab Results Last 24 hrs: Laboratory Results - last 24 hr 07/15/20 07/15/20 07/15/20 Range/Units 16:00 16:00 16:00 WBC 5.2 (4.5-11.0) K/uL RBC 4.42 (3.30-5.50) M/uL Hgb 13.6 (12.0-15.0) g/dL Hct 41.3 (36.0-48.0) % MCV 93 (80-98) fL MCH 31 (27-31) pg MCHC 33 (32-36) % Plt Count 252 (150-400) K/uL Neut % (Auto) 58.9 (36-66) % Lymph % (Auto) 33.8 (24-44) % Peach % (Auto) 5.4 (2-6) % Eos % (Auto) 1.5 L (2-4) % Baso % (Auto) 0.4 (0-1) % Sodium 143 (140-148) mmol/L Potassium 4.2 (3.6-5.2) mmol/L Chloride 107 (100-108) mmol/L Carbon Dioxide 24 (21-32) mmol/L Anion Gap 11.8 (5.0-14.0) mmol/L BUN 7 D (7-18) mg/dL Creatinine 0.7 (0.6-1.0) mg/dL Est Cr Clr Drug Dosing 118.21 mL/min Estimated GFR (MDRD) > 60 (>60) Glucose 88 (74-106) mg/dL Lactic Acid 0.6 (0.4-2.0) mmol/L Calcium 8.7 (8.5-10.1) mg/dL Ferritin (8-388) ng/ml Total Bilirubin 0.4 (0.2-1.0) mg/dL AST 19 (15-37) U/L ALT 24 (12-78) U/L Alkaline Phosphatase 85 (46-116) U/L Total Protein 6.2 L (6.4-8.2) g/dL Albumin 3.6 (3.4-5.0) g/dL Globulin 2.6 (2.3-3.5) g/dL Albumin/Globulin Ratio 1.4 (1.2-2.2) Lipase 155 (73-393) U/L Influenza Type A RNA (NEGATIVE) RSV RNA (INAAT) (NEGATIVE) Influenza Type B RNA (NEGATIVE) SARS-CoV-2 RNA (JUSTEN) (NEGATIVE) 07/15/20 07/16/20 Range/Units 20:00 07:01 WBC (4.5-11.0) K/uL RBC (3.30-5.50) M/uL Hgb (12.0-15.0) g/dL Hct (36.0-48.0) % MCV (80-98) fL MCH (27-31) pg MCHC (32-36) % Plt Count (150-400) K/uL Neut % (Auto) (36-66) % Lymph % (Auto) (24-44) % Peach % (Auto) (2-6) % Eos % (Auto) (2-4) % Baso % (Auto) (0-1) % Sodium (140-148) mmol/L Potassium (3.6-5.2) mmol/L Chloride (100-108) mmol/L Carbon Dioxide (21-32) mmol/L Anion Gap (5.0-14.0) mmol/L BUN (7-18) mg/dL Creatinine (0.6-1.0) mg/dL Est Cr Clr Drug Dosing mL/min Estimated GFR (MDRD) (>60) Glucose (74-106) mg/dL Lactic Acid (0.4-2.0) mmol/L Calcium (8.5-10.1) mg/dL Ferritin 14 (8-388) ng/ml Total Bilirubin (0.2-1.0) mg/dL AST (15-37) U/L ALT (12-78) U/L Alkaline Phosphatase (46-116) U/L Total Protein (6.4-8.2) g/dL Albumin (3.4-5.0) g/dL Globulin (2.3-3.5) g/dL Albumin/Globulin Ratio (1.2-2.2) Lipase (73-393) U/L Influenza Type A RNA Negative (NEGATIVE) RSV RNA (INAAT) Negative (NEGATIVE) Influenza Type B RNA Negative (NEGATIVE) SARS-CoV-2 RNA (JUSTEN) Negative (NEGATIVE) Result Diagrams: 07/15/20 16:00 07/15/20 16:00 Sepsis Event Note - Evaluation Sepsis Screening Result: No Definite Risk - Focused Exam Vital Signs: Vital Signs Temp Temp Pulse Resp BP Pulse Ox 07/16/20 07:17 95.7 F L 50 L 14 94/62 99 07/16/20 03:56 96.2 F L 56 L 16 95/50 L 98 07/15/20 23:00 96.7 F L 51 L 16 100/54 L 100 07/15/20 19:46 96.8 F L 63 16 96/48 L 95 - Problem List (1) Abdominal pain SNOMED Code(s): 63293821 ICD Code: R10.9 - UNSPECIFIED ABDOMINAL PAIN Status: Acute Current Visit: Yes Problem List Initiated/Reviewed/Updated: Yes Orders Last 24hrs: Active Orders 24 hr Category Date Time Status Patient Status [ADT] Routine ADT 07/15/20 19:13 Active Up ad Misa [RC] ASDIRECTED Care 07/15/20 19:12 Active Verify Patient Consent Obtain [RC] ASDIRECTED Care 07/15/20 19:18 Active Vital Signs [RC] Q4H Care 07/15/20 19:13 Active Clear Liquid Diet [DIET] Diet 07/15/20 Dinner Active Nothing per Oral After Midnight Diet [DIET] Diet 07/16/20 Breakfast Active Dextrose 5%-Lactated Ringers 1,000 ml Med 07/15/20 19:30 Active IV ASDIRECTED HYDROmorphone [Dilaudid] Med 07/15/20 19:18 Active 0.5 mg IVPUSH Q3H PRN Pantoprazole [ProTONIX IV] Med 07/16/20 09:00 Active 40 mg IVPUSH Q12H Resuscitation Status Routine Resus Stat 07/15/20 19:12 Ordered Medication Orders Hydromorphone HCl (Hydromorphone 0.5 Mg/0.5 Ml Syringe) 0.5 mg IVPUSH Q3H PRN PRN Reason: Pain Last Admin: 07/16/20 07:23 Dose: 0.5 mg Documented by: Admin: 07/16/20 03:56 Dose: 0.5 mg Documented by: Admin: 07/15/20 22:58 Dose: 0.5 mg Documented by: MARIA ESTHER Admin: 07/15/20 20:10 Dose: 0.5 mg Documented by: MARIA ESTHER Dextrose/Lactated Ringer's (Dextrose 5%-Lactated Ringers) 1,000 mls @ 200 mls/hr IV ASDIRECTED [facility] Last Admin: 07/16/20 01:23 Dose: 200 mls/hr Documented by: MARIA ESTHER Infusion: 07/16/20 01:03 Dose: 200 mls/hr Documented by: MARIA ESTHER Admin: 07/15/20 20:03 Dose: 200 mls/hr Documented by: MARIA ESTHER Pantoprazole Sodium (Pantoprazole 40 Mg Vial) 40 mg IVPUSH Q12H [facility] Assessment: Mid Epigastric Abdominal Pain Nausea and Vomiting History of RNY Gastric Bypass surgery 11 years ago Malabsorption Classified elsewhere Vitamin B12 deficiency Vitamin B1 deficiency Vitamin D deficiency Plan: EGD with possible biopsied scheduled for today Orders will be written after EGD. Hanh Gonzales 07/16/2020
[2020-07-16] MEDS ORDERED: Midazolam 1 MG/ML 2 ML SDV ONE (08:14)
[2020-07-16] MEDS ORDERED: Propofol 200 MG/20 ML SDV ONE (08:14)
[2020-07-16] MEDS ORDERED: fentaNYL 100 MCG/2 ML SDV ONE (08:14)
[2020-07-16] MEDS: Pantoprazole 40 MG Vial IVPUSH SCH ×2 (09:02→20:46)
[2020-07-16] MEDS ORDERED: Dexamethasone 4 MG/ML SDV ONE (10:53)
[2020-07-16] MEDS ORDERED: Ondansetron 4 MG/2 ML SDV ONE (10:53)
[2020-07-16] MEDS ORDERED: Ondansetron 4 MG/2 ML SDV IVPUSH PRN (11:47)
[2020-07-16] MEDS: Lidocaine 2% 60 ML, Alum Hydrox/Mag Hydrox/Simeth 360 ML PO PRN ×4 (12:30→16:26)
[2020-07-16] MEDS: MVI, Adult with Vitamin K 10 ML, Zinc/Copper/Manganese/Selenium 1 ML in Dextrose 5%-Lac... IV SCH ×6 (12:31→21:48)
[2020-07-16] MEDS ORDERED: Sodium Ferric Gluconate Cmplex 250 MG in Sodium Chloride 0.9% 100 ML IV SCH (14:00)
[2020-07-16] MEDS ORDERED: diphenhydrAMINE 50 MG/ML SDV IVPUSH PRN (23:13)
[2020-07-16] MEDS ORDERED: diphenhydrAMINE 25 MG Cap PO PRN (23:17)
[2020-07-17 07:21] VITALS: PULSE 54
[2020-07-17] MEDS: Lidocaine 2% 60 ML, Alum Hydrox/Mag Hydrox/Simeth 360 ML PO PRN ×4 (07:21→10:40)
[2020-07-17] MEDS ORDERED: Dextrose 5%-Lactated Ringers 1,000 ML IV SCH (08:30)
[2020-07-17] MEDS ORDERED: Sodium Ferric Gluconate Cmplex 250 MG in Sodium Chloride 0.9% 100 ML IV ONE (08:30)
[2020-07-17] MEDS: Pantoprazole 40 MG Vial IVPUSH SCH (09:05)
[2020-07-17 10:53] VITALS: BP 97/63
--- NOTE | 2020-07-17 22:17 | DISCH ---
ADMISSION DIAGNOSES: Severe abdominal pain, nausea, vomiting, status post Cindy-en-Y gastric bypass surgery, unspecified surgical malabsorption, B12 deficiency, vitamin D deficiency, depression, history of transient ischemic attack in November and December 2015. DISCHARGE DIAGNOSES: 1. Upper endoscopy with biopsies, 07/16/2020, Irvin Velásquez MD. 2. Mild gastritis. 3. CLOtest negative. HISTORY: Noreen Shea is a 39-year-old female who presented to the emergency room after having an increase in mid epigastric abdominal pain which had been occurring intermittently for 2 months. She states the pain got so severe that she could not manage it at home. She went to the emergency room and was admitted for IV fluids and pain management. She did have an EGD on 07/16/2020, which showed mild gastritis. CLOtest negative. She also was found to have a ferritin level of 14. Noreen was treated with IV Protonix and viscous lidocaine, and on 07/17/2020, she was able to be discharged home. Pain was 0 to 1 on a pain scale of 10, and she tolerated a step 2 gastric bypass diet without any complications. During her hospitalization, she received 2 IV doses of sodium ferric gluconate complex 250 mg IV. The first dose on 07/16/2020 and the second dose on 07/17/2020. She tolerated that well. Noreen was able to be discharged to home without any complications. REVIEW OF SYSTEMS: GENERAL: No fever, chills, night-sweats. Does report an increase in fatigue. HEENT: Negative. NECK: Negative. HEART: No chest pain, shortness of breath, fast or irregular heart beat. LUNGS: Denies any cough. ABDOMEN: Midepigastric pain, 0 to 1 as stated. No nausea, vomiting, diarrhea, or constipation. Denies red or black stools. GENITOURINARY: No UTI signs and symptoms. EXTREMITIES: No joint pain or swelling. NEUROLOGICAL: No weakness in the extremities, dizziness, or lack of coordination. PSYCHIATRIC: No increase in depression. Denies any anxiety or insomnia. SKIN: Without rash. Remainder of review of systems negative for any pertinent positives and negatives. OBJECTIVE: GENERAL: Noreen Shea is a pleasant 39-year-old female. VITAL SIGNS: Height is 5 feet 10.87 inches. Weight is 175 pounds. TPR is 95.5, 54, 14. Blood pressure 102/63. HEENT: Negative. NECK: Supple. HEART: Regular rate and rhythm. LUNGS: Clear. ABDOMEN: Soft, flat, nontender. EXTREMITIES: Without peripheral edema. NEUROLOGIC: Cranial nerves II through XII intact. PSYCHIATRIC: Mood and affect appropriate. DISPOSITION: Discharged to home. CONDITION: Stable and improving. FOLLOWUP APPOINTMENT: Hanh Santana PA-C, on 07/24/2020 at 10 a.m. MEDICATIONS: New Prescription: Magnesium oxide 400 mg p.o. daily, #100; Protonix 40 mg p.o. b.i.d., #60. To resume home medications of clonazepam 1 tablet p.o. at bedtime, buspirone HCL 30 mg p.o. b.i.d., Ambien 5 mg p.o. at bedtime, levomefolate calcium 15 mg daily, 1 mg p.o. daily p.r.n., EpiPen 0.3 mg IM as directed p.r.n., vitamin D3 5000 international units daily. DIET: Step 2 gastric bypass diet for 3 days, then advanced to step 3. Drink 8 to 10 glasses of water a day. ACTIVITY: As tolerated. DRIVING: May drive. SHOWER/BATHING: May shower. Notify provider if any fever, increased pain, nausea, or vomiting. Work slip given. No work on 07/16 and 07/17/2020 due to hospitalization and on 07/18/2020 for illness and recovery. /[id number]
--- NOTE | 2020-07-23 18:50 | OR ---
DATE OF PROCEDURE: 07/16/2020 SURGEON: Irvin Velásquez MD PREOPERATIVE DIAGNOSIS: Epigastric discomfort, nausea, and dehydration status post previous Cindy-en-Y gastric bypass. POSTOPERATIVE DIAGNOSIS: Very mild pouch gastritis. PROCEDURE PERFORMED: Upper gastrointestinal endoscopy with biopsies of the gastric pouch for CLOtest. ANESTHESIA: IV sedation. INDICATION FOR PROCEDURE: This is a 39-year-old status post previous Cindy-en-Y gastric bypass, presenting with some epigastric discomfort, nausea, and dehydration. A CT scan was obtained which was otherwise unremarkable. Plan is to proceed with upper GI endoscopy with biopsies and/or dilation as indicated. Potential risks including bleeding and perforation were discussed, and the patient wishes to proceed. DETAILS OF PROCEDURE: The patient was taken to the operating room and placed in a left lateral decubitus position. IV sedation was administered after which the upper GI endoscope was passed orally through the length of the esophagus into the gastric pouch, and from there, to the gastrojejunostomy roughly 20 cm into the Cindy limb. The exam was basically essentially normal other than some very mild redness in the gastric pouch. There was no significant esophagitis, no stricturing, and no evidence of any marginal ulcer formation. Biopsies were then obtained from the gastric pouch and sent for CLOtest for H pylori. Minimal bleeding from the biopsy site was seen. The procedure was then concluded. One is suspicious in this case that we might be dealing with a problem with some inflammation in the bypassed stomach. We will continue the b.i.d. Protonix and obtain an H pylori breath test as the CLOtest may not be particularly sensitive for H pylori in this setting with the biopsies having done from the gastric pouch. We will also initiate some Zofran treatment and viscous lidocaine mixed with Maalox to be taken p.r.n. and recheck some labs in the morning including amylase and lipase to rule out an evolving pancreatitis. Irvin Velásquez MD /[id number]
== END 2020-07-17 12:16 | disposition home or self-care (01) ==
LOC: JP.ED 15:13 → JP.MS 19:13
PROVIDERS: ADMIT Surgery; ATTEND Surgery
DX: E86.0 Dehydration (principal); Z98.84 Bariatric surgery status; K29.70 Gastritis, unspecified, without bleeding; E53.8 Deficiency of other specified B group vitamins; E55.9 Vitamin D deficiency, unspecified; F17.210 Nicotine dependence, cigarettes, uncomplicated; Z20.822 Contact with and (suspected) exposure to COVID-19; Z88.0 Allergy status to penicillin; Z88.1 Allergy status to other antibiotic agents; Z88.5 Allergy status to narcotic agent; Z88.8 Allergy status to other drugs, medicaments and biological substances; Z91.013 Allergy to seafood; Z91.048 Other nonmedicinal substance allergy status; Z79.899 Other long term (current) drug therapy; Z98.890 Other specified postprocedural states; Z90.49 Acquired absence of other specified parts of digestive tract
CPT/HCPCS: 0241U; 36415; 43239; 74177; 80053; 82150; 82728; 83605; 83690; 83735; 84100; 85025; 85027; 87081; 96365; 99284; 99285; A9270; C9113; J1100; J1170; J2250; J2405; J2704; J2916; J3010; J7030; J7121; Q9967

== ENCOUNTER 2020-10-15 14:47 | Emergency (ER) | payer BC ==
[2020-10-15 15:17] VITALS: BP 115/80; PULSE 77
[2020-10-15] MEDS ORDERED: HYDROmorphone 0.5 MG/0.5 ML Syringe IVPUSH ONE ×2 (15:51→17:09)
[2020-10-15] MEDS ORDERED: Metoclopramide 10 MG/2 ML SDV IVPUSH ONE (15:51)
--- NOTE | 2020-10-15 15:56 | EDM.PDOC ---
ED HPI GENERAL MEDICAL PROBLEM - General Chief Complaint: Abdominal Pain Stated Complaint: MID TO LOWER STOMACH PAIN Time Seen by Provider: 10/15/20 15:40 Source of Information: Reports: Patient, Old Records, RN History Limitations: Reports: No Limitations - History of Present Illness INITIAL COMMENTS - FREE TEXT/NARRATIVE: 39 yo female patient of Dr. Cook who has pHx of Cindy-N-Y gastric bypass presents with epigastric pain that began last evening. Has pain since with any attempts at swallowing anything. Did vomit and has nausea. Pain is epigastric. No fever. No blood in emesis or stool. Onset: Gradual Onset Date: 10/14/20 Duration: Hour(s):, Constant Location: Reports: Abdomen (upper) Quality: Reports: Ache Severity: Moderate Improves with: Reports: None Worsens with: Reports: Eating (or drinking) Context: Reports: Other (See HPI) Associated Symptoms: Reports: Nausea/Vomiting. 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) (none) Abdomen Pain Score (Numeric/FACES): 9 - Related Data Allergies Allergy/AdvReac Type Severity Reaction Status Date / Time ciprofloxacin [From Cipro] Allergy Severe Anaphylactic Verified 10/15/20 15:17 Shock clindamycin Allergy Severe Anaphylactic Verified 10/15/20 15:17 Shock fish derived Allergy Severe Anaphylactic Verified 10/15/20 15:17 Shock ibuprofen Allergy Severe Anaphylactic Verified 10/15/20 15:17 Shock Penicillins Allergy Severe Anaphylactic Verified 10/15/20 15:17 Shock adhesive tape Allergy Blisters Verified 10/15/20 15:17 hydrocodone [From Vicodin] AdvReac Vomiting Verified 10/15/20 15:17 NSAIDS (Non-Steroidal AdvReac Nausea Verified 10/15/20 15:17 Anti-Inflamma oxycodone [From Percocet] AdvReac Vomiting Verified 10/15/20 15:17 tramadol AdvReac Vomiting Verified 10/15/20 15:17 Home Meds: Home Meds Cholecalciferol (Vitamin D3) [Vitamin D3] 5,000 unit PO DAILY 12/20/17 [History] Levomefolate Calcium [l-Methylfolate Calcium] 15 mg PO DAILY 12/20/17 [History] busPIRone HCl [busPIRone] 30 mg PO BID 12/20/17 [History] Eszopiclone [Lunesta] 1 mg PO BEDTIME PRN 11/04/18 [History] EPINEPHrine [Epipen] 0.3 mg IM ASDIRECTED PRN #1 pen 06/17/20 [Rx] clonazePAM [Clonazepam] 1 tab PO BEDTIME 06/17/20 [History] Magnesium Oxide 400 mg PO DAILY #100 tablet 07/17/20 [Rx] Pantoprazole Sodium [Protonix] 40 mg PO BID #60 tablet. 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: Musculoskeletal History: Reports: Fracture Neurological History: Reports: TIA Other Neuro History: November and December TIA Psychiatric History: Reports: Depression - Infectious Disease History Infectious Disease History: Reports: Chicken Pox - Past Surgical History Head Surgeries/Procedures: Reports: None HEENT Surgical History: Reports: Tonsillectomy Other HEENT Surgeries/Procedures: wears glasses GI Surgical History: Reports: Appendectomy, Bariatric Procedure, Cholec ystectomy, EGD Female Surgical History: Reports: Hysterectomy, Salpingo-Oophorectomy Musculoskeletal Surgical History: Reports: Arthroscopic Knee, Other (See Below) Other Musculoskeletal Surgeries/Procedures:: hip surgerys, and knee surgerys Social & Family History - Tobacco Use Tobacco Use Status *Q: Light Tobacco User Years of Tobacco use: 23 Packs/Tins Daily: 0.5 - Caffeine Use Caffeine Use: Reports: Coffee Other Caffeine Use: 3 cups per day - Recreational Drug Use Recreational Drug Use: No ED ROS GENERAL - Review of Systems Review Of Systems: See Below Constitutional: Reports: No Symptoms HEENT: Reports: No Symptoms Respiratory: Reports: No Symptoms Cardiovascular: Reports: No Symptoms GI/Abdominal: Reports: Abdominal Pain, Nausea, Vomiting. Denies: Black Stool, Bloody Stool, Constipation, Diarrhea, Distension, Hematemesis, Hematochezia, Melena : Reports: No Symptoms Musculoskeletal: Reports: No Symptoms Skin: Reports: No Symptoms Neurological: Reports: No Symptoms ED EXAM, GI/ABD - Physical Exam Exam: See Below General Appearance: Alert, WD/WN, No Apparent Distress Eyes: Bilateral: Normal Appearance Ears: Normal External Exam, Normal Canal, Hearing Grossly Normal Nose: Normal Inspection, No Blood Throat/Mouth: Normal Inspection, Normal Lips, Normal Oropharynx, Normal Voice, No Airway Compromise Head: Atraumatic, Normocephalic Neck: Normal Inspection Respiratory/Chest: No Respiratory Distress, Lungs Clear, Normal Breath Sounds, No Accessory Muscle Use Cardiovascular: Regular Rate, Rhythm, No Edema GI/Abdominal Exam: Normal Bowel Sounds, Soft, No Distention, Tender (epigastric). No: Non-Tender, Distended Extremities: Normal Inspection Neurological: Alert, Oriented, CN II-XII Intact, Normal Cognition, No Motor/Sensory Deficits Psychiatric: Normal Affect, Normal Mood Skin Exam: Warm, Dry, Intact, Normal Color, No Rash Course - Vital Signs Last Recorded V/S: Last Vital Signs Temp 36.2 C 10/15/20 15:15 Pulse 77 10/15/20 15:15 Resp 20 10/15/20 15:15 BP 115/80 10/15/20 15:15 Pulse Ox 98 10/15/20 15:15 - Orders/Labs/Meds Orders: Active Orders 24 hr Category Date Time Status Iopamidol [Isovue-300 (61%)] Med 10/15/20 16:41 Active 150 ml IV . DIRECTED PRN Lactated Ringers [Ringers, Lactated] 1,000 ml Med 10/15/20 16:00 Active IV ASDIRECTED Sodium Chloride 0.9% [Normal Saline] 100 ml Med 10/15/20 16:45 Active IV ASDIRECTED Medication Orders Lactated Ringer's (Ringers, Lactated) 1,000 mls @ 500 mls/hr IV ASDIRECTED MAYRA Last Admin: 10/15/20 16:32 Dose: 500 mls/hr Documented by: DEVORAH Sodium Chloride (Normal Saline) 100 mls @ 3 mls/sec IV ASDIRECTED MAYRA Last Admin: 10/15/20 16:57 Dose: 3 mls/sec Documented by: MERISSA Iopamidol (Iopamidol 612 Mg/Ml 150 Ml Bottle) 150 ml IV . DIRECTED PRN PRN Reason: RADIOLOGY EXAM Stop: 10/16/20 16:42 Last Admin: 10/15/20 16:57 Dose: 130 ml Documented by: STACMERIKA Labs: Laboratory Tests 10/15/20 10/15/20 10/15/20 Range/Units 16:17 16:17 16:17 WBC 6.3 (4.5-11.0) K/uL RBC 4.67 (3.30-5.50) M/uL Hgb 14.4 D (12.0-15.0) g/dL Hct 43.6 (36.0-48.0) % MCV 93 (80-98) fL MCH 31 (27-31) pg MCHC 33 (32-36) % Plt Count 239 (150-400) K/uL Sodium 141 (140-148) mmol/L Potassium 4.1 (3.6-5.2) mmol/L Chloride 105 (100-108) mmol/L Carbon Dioxide 26 (21-32) mmol/L Anion Gap 10.0 (5.0-14.0) mmol/L BUN 12 D (7-18) mg/dL Creatinine 0.9 (0.6-1.0) mg/dL Est Cr Clr Drug Dosing 91.94 mL/min Estimated GFR (MDRD) > 60 (>60) Glucose 82 (74-106) mg/dL Calcium 9.1 (8.5-10.1) mg/dL Lipase 136 (73-393) U/L Meds: Medications Generic Name Dose Route Start Last Admin Trade Name Freq PRN Reason Stop Dose Admin Lactated Ringer's 1,000 mls @ 500 mls/hr 10/15/20 16:00 10/15/20 16:32 Ringers, Lactated IV 500 mls/hr ASDIRECTED MAYRA Administration Sodium Chloride 100 mls @ 3 mls/sec 10/15/20 16:45 10/15/20 16:57 Normal Saline IV 3 mls/sec ASDIRECTED MAYRA Administration Iopamidol 150 ml 10/15/20 16:41 10/15/20 16:57 Iopamidol 612 Mg/Ml 150 Ml Bottle IV 10/16/20 16:42 130 ml . DIRECTED PRN Administration RADIOLOGY EXAM Discontinued Medications Generic Name Dose Route Start Last Admin Trade Name Freq PRN Reason Stop Dose Admin Hydromorphone HCl 0.5 mg 10/15/20 15:51 10/15/20 16:31 Hydromorphone 0.5 Mg/0.5 Ml Syringe IVPUSH 10/15/20 15:52 0.5 mg ONETIME ONE Administration Hydromorphone HCl 0.5 mg 10/15/20 17:09 10/15/20 17:21 Hydromorphone 0.5 Mg/0.5 Ml Syringe IVPUSH 10/15/20 17:10 0.5 mg ONETIME ONE Administration Metoclopramide HCl 5 mg 10/15/20 15:51 10/15/20 16:31 Metoclopramide 10 Mg/2 Ml Sdv IVPUSH 10/15/20 15:52 5 mg ONETIME ONE Administration Sodium Chloride 10 ml 10/15/20 16:41 10/15/20 16:57 Sodium Chloride 0.9% 10 Ml Sdv FLUSH 10/15/20 16:42 10 ml ONETIME ONE Administration - Radiology Interpretation Free Text/Narrative:: CT abd/pelvis with IV contrast- Impression: Stable appearance of the Cindy-en-Y gastric bypass. No obstruction. Stable subcentimeter mesenteric lymph nodes at the root of the mesentery which are considered normal. No change from the prior study. Please note that all CT scans at this facility use dose modulation, iterative reconstruction, and/or weight-based dosing when appropriate to reduce radiation dose to as low as reasonably achievable. Dictated by Renato Lobato MD @ 10/15/2020 5:37:04 PM Departure - Departure Time of Disposition: 17:47 Disposition: Home, Self-Care 01 Condition: Fair Clinical Impression: Epigastric pain - Discharge Information *PRESCRIPTION DRUG MONITORING PROGRAM REVIEWED*: No *COPY OF PRESCRIPTION DRUG MONITORING REPORT IN PATIENT CHRIS: No Instructions: Abdominal Pain, Adult, Tecd-am-Rlup Referrals: PCP,None [Primary Care Provider] - Forms: ED Department Discharge Additional Instructions: Use Tylenol #3 as needed for pain relief. Clear liquids in sips tonight. See Hanh kwon to go over your symptoms and make a plan. Return if a lot worse. Sepsis Event Note (ED) - Focused Exam Vital Signs: Vital Signs Temp Pulse Resp BP Pulse Ox 10/15/20 15:15 36.2 C 77 20 115/80 98 - My Orders Last 24 Hours: My Active Orders 10/15/20 16:00 Lactated Ringers [Ringers, Lactated] 1,000 ml IV ASDIRECTED 10/15/20 16:41 Iopamidol [Isovue-300 (61%)] 150 ml IV . DIRECTED PRN 10/15/20 16:45 Sodium Chloride 0.9% [Normal Saline] 100 ml IV ASDIRECTED - Assessment/Plan Last 24 Hours: My Active Orders 10/15/20 16:00 Lactated Ringers [Ringers, Lactated] 1,000 ml IV ASDIRECTED 10/15/20 16:41 Iopamidol [Isovue-300 (61%)] 150 ml IV . DIRECTED PRN 10/15/20 16:45 Sodium Chloride 0.9% [Normal Saline] 100 ml IV ASDIRECTED
[2020-10-15] MEDS ORDERED: Lactated Ringers 1,000 ML IV SCH (16:00)
[2020-10-15] MEDS ORDERED: Sodium Chloride 0.9% 10 ML SDV FLUSH ONE (16:41)
[2020-10-15] MEDS ORDERED: Iopamidol 612 MG/ML 150 ML Bottle IV PRN (16:41)
[2020-10-15] MEDS ORDERED: Sodium Chloride 0.9% 100 ML IV SCH (16:45)
--- NOTE | 2020-10-15 17:38 | CRLCT ---
For Patients: As a result of the Century Cures Act, medical imaging exams and procedure reports are released immediately into your electronic medical record. You may view this report before your referring provider. If you have questions, please contact your health care provider. Indication: epigastric pain, hx of gastric bypass Technique: Postcontrast CT abdomen and pelvis. 130 cc Isovue-300 intravenous contrast. Please note that all CT scans at this facility use dose modulation, iterative reconstruction, and/or weight-based dosing when appropriate to reduce radiation dose to as low as reasonably achievable. Comparison: July 15, 2020 Findings: Postoperative changes of Cindy-en-Y gastric bypass. No obstruction or inflammatory change. Postop changes of cholecystectomy. No biliary ductal obstruction. Spleen and pancreas normal. Normal adrenal glands and kidneys. No adenopathy. Lung bases clear. No bowel obstruction or free air. No abscess. Uterus absent. Bladder normal. No adnexal mass. No hernia. Osseous structures normal. Impression: Stable appearance of the Cindy-en-Y gastric bypass. No obstruction. Stable subcentimeter mesenteric lymph nodes at the root of the mesentery which are considered normal. No change from the prior study. Please note that all CT scans at this facility use dose modulation, iterative reconstruction, and/or weight-based dosing when appropriate to reduce radiation dose to as low as reasonably achievable. Dictated by Renato Lobato MD @ 10/15/2020 5:37:04 PM (Electronically Signed)
== END 2020-10-15 18:27 | disposition home or self-care (01) ==
LOC: JP.ED 14:47
DX: R10.13 Epigastric pain (principal); Z72.0 Tobacco use; Z88.1 Allergy status to other antibiotic agents; Z91.013 Allergy to seafood; Z88.6 Allergy status to analgesic agent; Z88.0 Allergy status to penicillin; Z91.048 Other nonmedicinal substance allergy status; Z88.5 Allergy status to narcotic agent; Z79.899 Other long term (current) drug therapy
CPT/HCPCS: 36415; 74177; 80048; 83690; 85027; 96374; 96375; 96376; 99284; J1170; J2765; J7120; Q9967